=== PATIENT | female | born 1970 | race Caucasian/White ===

== ENCOUNTER 2022-12-24 20:33 | Emergency (ER) | payer OTHER, SELFPAY ==
[2022-12-24 20:56] VITALS: BP 174/109; PULSE 79; RESP 18; TEMP 36.3; O2SAT 100; BMI 33.9
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
[2022-12-24 21:42] VITALS: O2SAT 98
[2022-12-24] MEDS: MORPHINE 10 MG/ML inj IM (21:43)
[2022-12-24] MEDS: dexAMETHasone 10 MG/ML inj PO (21:43)
[2022-12-24 22:12] VITALS: BP 151/101; PULSE 72; RESP 18; O2SAT 98
== END 2022-12-24 22:15 | disposition home or self-care (01) ==
PROVIDERS: Emergency Provider Emergency Medicine Emergency Medical Services
DX: M54.12 Radiculopathy, cervical region (principal)
CPT/HCPCS: 93005; 94761; 96372; 99284; J1100; J2270

== ENCOUNTER 2024-09-07 15:15 | Emergency (ER) | payer BC, SELFPAY ==
--- OUTSIDE RECORDS SUMMARY | 2024-09-07 15:17 | XMS_ITS | Encounter Summary ---
Author Organization [place] Address [address] [place] [address]. [place] [address] Care Team Providers Care Customs Import Specialist Name Role Phone Herminio Sharma MD Primary Care Provider Sveta Morrison Primary Care Provider [phone] Tammy Freitas FLAT SURFACER JEWEL Primary Care Prov ider Gamaliel Triana MD Unavailable [phone] Priscila Aleman APRN DIESEL PILE DRIVER OPERATOR Unavailable [phone] Encounter Details Date Type Department Care Team (Late st Contact Info) Description 02/22/[address] [place] [address] Herminio Sharma [place] [address] ER (Primary Dx) Social History Tobacco Use Types Packs/Day Years Used Date Smoking Tobacco: Former Cigarettes 0.5 9 0 07/15/1986 - 07/15/1995 Smokeless Tobacco: Never Alcohol Use Standard Drinks/Week Comments No 0 (1 standard drink = 0.6 oz pur e alcohol) Comments No Sex and Gender Information Value Date Recorded Sex Assigned at Not on file 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 HISTORY OF PRESENT ILLNESS: The patient i s a 33-year-old female who says she has been ill for the last 30 hours at least with a number of symp toms, especially coughing up green-brown phlegm. Her chest has been feeling heavy, but not painful. She has had a sore throat along with aches and chills, and has been very uncomfortable. She has not felt nauseated or vomited, but her appetite is decreased. She has had normal stools. She has no ur inary symptoms. She is having her period which is due now. The last one was four weeks ago. She azar s asthma and has been using her medication more frequently. Her son is also ill with a similar probl em. She has a nebulizer at home that they both use. She doesn't smoke. There has been no trauma. M EDICATIONS: Advair and albuterol. ALLERGIES: PENICILLIN. 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 She has had three to four episodes since. When that flares up she gets pain and tingling in her left arm. FAMILY HIS TORY: As above. SOCIAL HISTORY: The patient doesn't smoke or use alcohol. She works in [employer] and has been working about 100 hours a week. REVIEW OF SYSTEMS: All other systems are negativ e. PHYSICAL EXAMINATION; Shows an alert, pleasant female. Temperature is 98.8, pulse 96 and regular , respirations 20, blood pressure 139/73, pulse ox 98% on room air. HEENT; her conjunctiva are clear . Tympanic membranes are normal. Mouth and pharynx are mildly red. There are no pustules or exudat e. Neck is supple. Lymphatics are negative. Chest shows bilateral wheezing with decreased breath so unds. Cardiovascular examination is regular S1, S2 without murmur. Peripheral pulses are intact. N o neck vein distention or edema. Her veins appear normal in her left upper extremity. The abdomen h as bowel sounds present. It is soft and nontender. No masses or guarding. Back is negative. Extre mities are normal. Skin is clear. Neurologically she is alert and oriented and within normal limits. LABORATORY: Chest x-ray shows questionable nodule in her left upper lung. There is thickening of the peribronchial tissue. Her heart size is normal. EMERGENCY DEPARTMENT COURSE: The patient was m edicated with Tylenol 975 mg by mouth and with that her body aches improved considerably. Proventil 2.5 mg, Atrovent 0.5 mg was given as nebulization. After that she had left sided wheezing. A second Proventil Atrovent neb was given and after that she was much improved, especially after a few coughs . The patient was medicated with 40 mg of prednisone by mouth. She has not been on the medication f or about a year. She currently is feeling better. The patient has an episode of bronchitis in [facility] ion to exacerbation of her asthma in the setting of a respiratory infection, which will be treated ag gressively with a number of medications as described below. She has a nebulizer at home that she can use, and she will need some time off from work. The discharge plan was reviewed with her and is as follows. DISCHARGE PLAN: The patient was prescribed a prednisone taper over eight days, Zithromax 5 00 mg now and 250 mg a day for four more days, Combivent inhaler to be used two puffs every four to s ix hours as needed for wheezing, and albuterol 2.5 mg, Atrovent 0.5 mg pre mixed nebs 60 each to be u sed one every four to six hours as needed for wheezing. She should rest, drink extra fluids, take Ty lenol for any fevers, aches or chills, and stay indoors. She has been given a work slip excusing her from her duties for two days. She is to be rechecked with a doctor in four to five days, sooner if needed. She may return to the Emergency Department as needed. DIAGNOSIS: 1) Acute bronchitis. 2) Acute asthma exacerbation. 3) Asthma. [id number] _ FRANK ZHU MD T: 02/24 11:55 MT: Document: [id number] [place], [place] Name: BRENDA MORALES EMERGENCY ROOM ENCOUNTER Page 3 of 2 LCN: HEATHER DSC: 02/22/2003 [place], [place] Name: MR#: : Admit Date: BRENDA TAO [id number] 02/22/2003 Doctor: FRANK ZHU MD EMERGENCY ROOM ENCOUNTER Page 1 of 2 Electronically file d by Andre Webster 03/01/2003 4:03 PM documented in this encounter Plan of Treatment Not on file documented as of this encounter Visit Diagnoses Diagnosis ER- Primary documented in this encounter Care Teams Customs Import Specialist Relationship Specialty Start Date End Date Herminio Sharma MD [place] [id number] PCP - General 10/19/02 02/21/12 Sveta Morrison [place] [phone] PCP - General 02/22/12 02/18/18 Tammy Freitas NP [facility] [address] [place] [address] PCP - General Nurse Practitioner - Adult Health 02/19/18 Gamaliel Triana MD [address] [facility] [address] [place], [place] [address] Assigned Surgical Provider 05/06/20 02/04/21 Priscila Aleman APRN DIESEL PILE DRIVER OPERATOR [address] [place], [place] [address] Assigned Neuroscience Provider 12/25/20 07/29/21 documented as of this encounter
--- OUTSIDE RECORDS SUMMARY | 2024-09-07 15:18 | XMS_ITS | Encounter Summary ---
Author Organization [place] Address [address] [place] [address]. [place] [address] Care Team Providers Care Director Nurses' Registry Name Role Phone Herminio Sharma MD Primary Care Provider Sveta Morrison Primary Care Provider [phone] Tammy Freitas METALLURGIST PROCESS Primary Care Prov ider Gamaliel Triana MD Unavailable [phone] Priscila Aleman APRN UNDERWRITING CLERK Unavailable [phone] Encounter Details Date Type Department Care Team (Late st Contact Info) Description 05/23/[address] [place] [address] Herminio Sharma [place] [address] ER ENCOUNTER (Primary Dx) Social History Tobacco Use Types Packs/Day Years Used Date Smoking Tobacco: Former Cigarettes 0.5 9 0 07/15/1986 - 07/15/1995 Smokeless Tobacco: Never Alcohol Use Standard Drinks/Week Comments No 0 (1 standard drink = 0.6 oz pur e alcohol) Comments No Sex and Gender Information Value Date Recorded Sex Assigned at Not on file 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 HISTORY OF THE PRESENT ILLNESS: This woman co mplains of a cough for the last nine days productive of greenish sputum. She has also had a sore thr oat over the last several days. She had a negative strep on Saturday at a [facility]. She has had no fever or chills. No nausea, no vomiting. No shortness of breath. She has had no chest pain. ALLER GIES: PENICILLIN causes hives and states her throat closes off. MEDICATIONS: None. PAST MEDICAL H ISTORY: Asthma, but does not like to use her inhalers. SOCIAL HISTORY: She is a nonsmoker. Did no t have any alcohol today. FAMILY HISTORY: Not helpful in this case. REVIEW OF SYSTEMS: In general she has not been feeling well over the last nine days with the cold symptoms and she also complains of some slight fullness in the left ear. The skin negative. Head: See history of the present illnes s. Eyes negative. Ears: See history of the present illness. Throat: See history of the present ill ness. Mouth negative. Neck negative. Cardiorespiratory: See history of the present illness. All o ther systems are negative. PHYSICAL EXAMINATION: Blood pressure 153/83. Pulse is 80. Respiratory r ate is 16. Temperature is 98.9. Pulse oximetry is 99% on room air. 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 SKIN is warm and dry. EYES: No CONJUNCTIVAL, no hemorrhage. THROAT: Mild erythema of the posterior PHARYNX with no exudate and no swelling of the TONSILS. The NECK is supple. No JUGULAR VENOUS distension and the re is no adenopathy. EARS: Both TYMPANIC MEMBRANES are normal with good light reflexes. LUNGS are cl ear to auscultation, may be a few scattered coarse rhonchi, but no rales. No wheezing. No friction rubs. HEART: Regular sinus rhythm, no murmurs. The CHEST x-ray is normal. The rapid strep is negat reena. DISCHARGE PLAN: Robitussin AC two teaspoons p.r.n. cough q. four hours. Z-elvis. Fluids. See primary medical doctor if not better in seven to ten days. DIAGNOSIS: Bronchitis. CONDITION: Stab le. [id number]_ [facility] MCDONNE[facility] MD MT: Document: [id number] 3 [place], [place] Name: BRENDA TAO EMERGENCY ROOM ENCO UNTER Page 2 of 2 LCN: ERA DSC: 05/23/2003 [place], [place] Name: MR#: : Admit Date: BRENDA TAO -66 1970 05/23/2003 Doctor: L[facility] MCDONNELL MD EMERGENCY ROOM ENCOUNTER Page 1 of 2 Electronically filed by Mandy Smith 06/07/2003 1 2:16 PM documented in this encounter Plan of Treatment Not on file documented as of this encounter Visit Diagnoses Diagnosis ER ENCOUNTER- Primary documented in this encounter Care Teams Director Nurses' Registry Relationship Specialty Start Date End Date Herminio [place] [address] PCP - General 10/19/02 02/21/12 Sveta [place] [phone] PCP - General 02/22/12 02/18/18 Tammy Freitas NP [facility] [address] [place] [place] [address] PCP - General Nurse Practitioner - Adult Health 02/19/18 Gamaliel Triana MD [address] [facility] [address] [place], [place] [address] Assigned Surgical Provider 05/06/20 02/04/21 Priscila Aleman APRN UNDERWRITING CLERK [address] [place], [place] [address] Assigned Neuroscience Provider 12/25/20 07/29/21 documented as of this encounter
--- OUTSIDE RECORDS SUMMARY | 2024-09-07 15:18 | XMS_ITS | Encounter Summary ---
Author Organization [place] Address [address] [place] [address] Care Team Providers Care Webfocus Developer Name Role Phone Tammy Freitas MECHANIC/WELDER Primary Care Prov ider Encounter Details Date Type Department Care Team (Late st Contact Info) Description 07/24/2024 10:15 AM RADIO COMMUNICATION COORDINATOR Lab [facility] [address] [place] [phone] Memory loss (Primary Dx) Social History Tobacco Use Types Packs/Day Years Used Date Smoking Tobacco: Former Cigarettes 0.5 9 0 07/15/1986 - 07/15/1995 Smokeless Tobacco: Never Alcohol Use Standard Drinks/Week Comments No 0 (1 standard drink = 0.6 oz pur e alcohol) PHQ-2 Answer Date Recorded PHQ-2 Score 0 01/23/2019 Adolescent Education Answer Date Record ed Getting School Help Needed Not on file 04/21 Comments No Sex and Gender Information Value Date Recorded Sex Assigned at Not on file Legal Sex Female 3:45 AM RADIO COMMUNICATION COORDINATOR Gender Identity Not on file Sexual Orientation Not on file documented as of this encounter Plan of Treatment Not on file documented as of this encounter Procedures Procedure Name Priority Date/Time Associated Diagnosis Comments TSH WITH FREE T4 REFLEX Routine 07/24/2024 10:26 AM RADIO COMMUNICATION COORDINATOR Memory loss FOLATE Routine 07/24/2024 10:26 AM RADIO COMMUNICATION COORDINATOR Memory loss VITAMIN B12 Routine 07/24/2024 10:26 AM RADIO COMMUNICATION COORDINATOR Memory loss documented in this encounter Results * Vitamin B12 (07/24/2024 10:26 AM RADIO COMMUNICATION COORDINATOR) Vitamin B12 640 232 - 1,245 pg/mL 07/24/2024 5:28 PM RADIO COMMUNICATION COORDINATOR [facility] Blood STRUCTURE OF RIGHT UPPER LIMB / Unknown Venipuncture / Unknown 07/24/2024 10:26 AM RADIO COMMUNICATION COORDINATOR 07/24/2024 10:27 AM RADIO COMMUNICATION COORDINATOR [facility] PA-C LAB - BLOOD ORDERAB LES Final Result LABORATORY [facility] [address] [facility], [address] * Folate (07/24/2024 10:26 AM RADIO COMMUNICATION COORDINATOR) Folic Acid 9.4 4.6 - 34.8 ng/mL 07/24/2024 5:05 PM RADIO COMMUNICATION COORDINATOR LABORATORY Blood STRUCTURE OF RIGHT UPPER LIMB / Unknown Venipuncture / Unknown 07/24/2024 10:26 AM RADIO COMMUNICATION COORDINATOR 07/24/2024 10:27 AM RADIO COMMUNICATION COORDINATOR Anuel Edge León CA-C LAB - BLOOD ORDERAB LES Final Result Performing Organization Address City/[facility]/ZIP Co de Phone Number LABORATORY [facility] Lab [address] [facility], [address] * TSH with free T4 reflex (07/24/2024 10:26 AM RADIO COMMUNICATION COORDINATOR) TSH 3.35 0.30 - 4.20 uIU/mL 07/24/2024 11:14 AM RADIO COMMUNICATION COORDINATOR LABORATORY Blood STRUCTURE OF RIGHT UPPER LIMB / Unknown Venipuncture / Unknown 07/24/2024 10:26 AM RADIO COMMUNICATION COORDINATOR 07/24/2024 10:27 AM RADIO COMMUNICATION COORDINATOR [facility]-C LAB - BLOOD ORDERAB LES Final Result [facility] LABORATORY [facility] [address] Lab (1st floor, no room number) [place] [phone], [facility] documented in this encounter Visit Diagnoses Diagnosis Memory loss- Primary documented in this encounter Care Teams Webfocus Developer Relationship Specialty Start Date End Date Tammy Freitas NP [facility] [address] [address] PCP - General Nurse Practitioner - Adult Health 02/19/18 documented as of this encounter
--- OUTSIDE RECORDS SUMMARY | 2024-09-07 15:18 | XMS_ITS | Clinical Summary ---
Author Organization [facility] Address [address] [place] [address] Care Team Providers Care Platen Press Operator Name Role Phone Tammy Freitas CYBER SYSTEMS ENGINEER Primary Care Prov ider Allergies Active Allergy Reactions Criticality Noted Date Comments Latex Hives High 03/11/2012 Penicillins Hives High 06/30/2002 Throat swells Prunus Persica Rash Medium 06/24/2011 Rash over entire body Rash over entire body Medications omeprazole (PRILOSEC) 20 MG CR capsuleIndicati ons:Gastroesoph ageal Reflux Disease Take 20 mg by mouth daily Active carBAMazepine (TEGRETOL) 200 MG tabletIndicatio ns:Trigeminal neuralgia Take 1 tablet (200 mg) by mouth 3 times daily 90 tablet 2 01/30/2019 Active gabapentin (NEURONTIN) 100 MG capsule Take 100 mg by mouth 4 times daily Active traZODone (DESYREL) 50 MG tablet Take 50-100 mg by mouth nightly as needed for sleep Active oxyCODONE 5 MG PO tabletIndicatio ns:Mass on back Take 1-2 tablets (5-10 mg) by mouth every 4 hours as needed for moderate to severe pain 10 tablet 09/03/2019 Active Active Problems Problem Noted Date Diagnosed Date Mass on back 08/13/2019 Overview (08/13/2019): Added automatically from request for surgery [id number] Bariatric surgery status 04/02/2013 Anemia 06/24/2011 Diabetes mellitus, type II 06/24/2011 Overview (07/05/2017): Overview: a system change updated this record. This will not affect patient care or billing. This comment can be deleted. SVT (supraventricular tachycardia) 06/24/2011 Obesity 10/19/2002 Overview (07/05/2017): Problem list name updated by automated process. Provider to review Resolved Problems Problem Noted Date Diagnosed Date Resolved Date Obesity, morbid (more than 1 00 lbs over ideal weight or BMI > 40) 03/12/2012 04/02/2013 CARDIOVASCULAR SCREENING; LD L GOAL LESS THAN 160 05/14/2010 04/02/2013 Phlebitis and thrombophlebit is of deep veins of upper extremities 05/04/2005 04/02/2013 Anxiety state 05/04/2005 04/02/2013 Overview (04/14/2015): Problem list name updated by automated process. Provider to review Depressive disorder, not elsewhere classified 02/07/20 05 04/02/2013 Dyspnea and respiratory abnormality 10/19/2002 01/21/2005 Overview (04/14/2015): Problem list name updated by automated process. Provider to review Epistaxis 10/19/2002 01/21/2005 Diarrhea 06/30/2002 01/21/2005 UTI (urinary tract infection) 06/30/2002 01/21/2005 Overview (04/14/2015): Problem list name updated by automated process. Provider to review Encounters Date Type Department Care Team Description 07/26/2024 MyC Medical Advice Initial Department [facility] 07/26/2024 MyC Medical Advice Initial Department My[facility], [facility] 07/26/2024 MyC Medical Advice Initial Department Mychart, [facility] 07/24/2024 10:15 AM [facility] Lab [facility] [address] [place] [address] Memory loss (Primary Dx) 07/24/2024 Travel from Last 3 Months Family History Medical History Relation Comments Cancer Father Skin Ca Circulatory Father Heart Disease Father Hypertension Father Hypertension Mother Migraines Mother Diabetes Paternal Grandmother Relation Status Comments Father Alive Mother Alive Paternal Grandmother Social History Tobacco Use Types Packs/Day Years Used Date Smoking Tobacco: Former Cigarettes 0.5 9 0 07/15/1986 - 07/15/1995 Smokeless Tobacco: Never Tobacco Cessation:Counseling Given: Yes Alcohol Use Standard Drinks/Week Comments No 0 (1 standard drink = 0.6 oz pur e alcohol) PHQ-2 Answer Date Recorded PHQ-2 Score 0 01/23/2019 Adolescent Education Answer Date Record ed Getting School Help Needed Not on file 04/21 Comments No Sex and Gender Information Value Date Recorded Sex Assigned at Not on file Legal Sex Female 3:45 AM STOCKROOM ASSOCIATE Gender Identity Not on file Sexual Orientation Not on file Last Filed Vital Signs Vital Sign Reading Time Taken Comments Blood Pressure 137/81 09/03/2019 9:38 AM STOCKROOM ASSOCIATE Pulse 65 09/03/2019 6:32 AM STOCKROOM ASSOCIATE Temperature 36.3 C (97.4 F) 09/03/2019 9:35 AM STOCKROOM ASSOCIATE Respiratory Rate 16 09/03/2019 9:35 AM STOCKROOM ASSOCIATE Oxygen Saturation 98% 09/03/2019 9:35 AM STOCKROOM ASSOCIATE Inhaled Oxygen Concentration - - Weight 88 kg (194 lb) 09/03/2019 6:32 AM STOCKROOM ASSOCIATE Height 170.2 cm (5' 7) 09/03/2019 6:32 AM STOCKROOM ASSOCIATE p er pt Body Mass Index 30.38 09/03/2019 6:32 AM STOCKROOM ASSOCIATE Plan of Treatment Not on file Procedures Procedure Name Priority Date/Time Associated Diagnosis Comments VITAMIN B12 Routine 07/24/2024 10:26 AM STOCKROOM ASSOCIATE Memory loss FOLATE Routine 07/24/2024 10:26 AM STOCKROOM ASSOCIATE Memory loss TSH WITH FREE T4 REFLEX Routine 07/24/2024 10:26 AM STOCKROOM ASSOCIATE Memory loss from Last 3 Months Results * TSH with free T4 reflex (07/24/2024 10:26 AM STOCKROOM ASSOCIATE) TSH 3.35 0.30 - 4.20 uIU/mL 07/24/2024 11:14 AM STOCKROOM ASSOCIATE [facility] Blood STRUCTURE OF RIGHT UPPER LIMB / Unknown Venipuncture / Unknown 07/24/2024 10:26 AM STOCKROOM ASSOCIATE 07/24/2024 10:27 AM STOCKROOM ASSOCIATE Anuel Traore PA-C LAB - BLOOD ORDERAB LES Final Result [facility] [address] Lab (1st floor, no room number) [place] [address], [facility] * Folate (07/24/2024 10:26 AM STOCKROOM ASSOCIATE) Folic Acid 9.4 4.6 - 34.8 ng/mL 07/24/2024 5:05 PM STOCKROOM ASSOCIATE [facility] Blood STRUCTURE OF RIGHT UPPER LIMB / Unknown Venipuncture / Unknown 07/24/2024 10:26 AM STOCKROOM ASSOCIATE 07/24/2024 10:27 AM STOCKROOM ASSOCIATE Anuel Traore PA-C LAB - BLOOD ORDERAB LES Final Result [facility] Lab [address] [facility], [address] [address], [facility] * Vitamin B12 (07/24/2024 10:26 AM STOCKROOM ASSOCIATE) Vitamin B12 640 232 - 1,245 pg/mL 07/24/2024 5:28 PM STOCKROOM ASSOCIATE [facility] Blood STRUCTURE OF RIGHT UPPER LIMB / Unknown Venipuncture / Unknown 07/24/2024 10:26 AM STOCKROOM ASSOCIATE 07/24/2024 10:27 AM STOCKROOM ASSOCIATE Anuel Traore PA-C LAB - BLOOD ORDERAB LES Final Result [facility] [address] [facility], [address] [address], [facility] from Last 3 Months Insurance [facility] Advance Directives For more information, please contact: [phone] * Full Code (Latest Code Status on File) Date Activated Date Inactivated Comments 03/12/2012 12:17 PM 03/14/2012 2:23 PM Care Teams Platen Press Operator Relationship Specialty Start Date End Date Tammy Freitas NP [facility] [address] [facility] [place] [place] [address] PCP - General Nurse Practitioner - Adult Health 02/19/18
--- OUTSIDE RECORDS SUMMARY | 2024-09-07 15:18 | XMS_ITS | Encounter Summary ---
Author Organization [facility] Address [address] [place] [address] Care Team Providers Care Lead Cytogenetic Technologist Name Role Phone Sveta Morrison Primary Care Provider [phone] Tammy Freitas RN LIAISON Primary Care Prov ider Gamaliel Triana MD Unavailable [phone] Priscila Aleman APRN DISTANCE LEARNING ADMINISTRATOR Unavailable [phone] Reason for Visit * Reason Onset Date Comments Appointment 01/02/2018 schedule Encounter Details Date Type Department Care Team (Late st Contact Info) Description 01/02/2018 [place] [id number] [address] Unknown Appointment (schedule) Social History Tobacco Use Types Packs/Day Years Used Date Smoking Tobacco: Former Cigarettes 0.5 11 0 07/15/1986 - 07/15/1997 Smokeless Tobacco: Never Alcohol Use Standard Drinks/Week Comments No 0 (1 standard drink = 0.6 oz pur e alcohol) Comments No Sex and Gender Information Value Date Recorded Sex Assigned at Not on file Legal Sex Female 3:45 AM JEWEL HOLE FINISH OPENER Gender Identity Not on file Sexual Orientation Not on file documented as of this encounter Miscellaneous Notes * Telephone Encounter - Veda Patinoe - 01/02/2018 11:08 AM CDT [facility] Phone Message May a detailed message be left on voicemail: yes Reason for Call: Other: Pts information was left with AAKASH at [phone] (customer service receptionist transferredto Aakash). Pt would like to reschedule with Neurosurgery. Action Taken: Message routed to: [facility] ([facility]): Neuro documented in this encounter Plan of Treatment Not on file documented as of this encounter Visit Diagnoses Not on filedocumented in this encounter Care Teams Lead Cytogenetic Technologist Relationship Specialty Start Date End Date Sveta Morrison PCP - General 02/22/12 02/18/18 Tammy Freitas NP [facility] [address] [place], [place] [address] PCP - General Nurse Practitioner - Adult Health 02/19/18 Gamaliel Triana MD [address] [facility] [address] [place], [place] [address] Assigned Surgical Provider 05/06/20 02/04/21 Priscila Aleman APRN DISTANCE LEARNING ADMINISTRATOR [address] [place], [place] [address] Assigned Neuroscience Provider 12/25/20 07/29/21 documented as of this encounter
--- OUTSIDE RECORDS SUMMARY | 2024-09-07 15:18 | XMS_ITS | Encounter Summary ---
Author Organization [facility] Address [address] [place] [address]. [place] [address] Care Team Providers Care Letter Of Credit Document Examiner Name Role Phone Herminio Sharma MD Primary Care Provider DoctorSundar MD Primary Care Provider UnavailSveta Matos Primary Care Provider [phone] Tammy Freitas CHANNEL REBUILDER Primary Care Prov ider Gamaliel Triana MD Unavailable [phone] Priscila Aleman APRN SUSTAINABILITY EXECUTIVE DIRECTOR Unavailable [phone] Encounter Details Date Type Department Care Team (Late st Contact Info) Description 10/13/[address] [place] [address] Herminio Sharma [place] [address] ER (Primary Dx) Social History Tobacco Use Types Packs/Day Years Used Date Smoking Tobacco: Former Cigarettes 0.5 9 0 07/15/1986 - 07/15/1995 Smokeless Tobacco: Never Alcohol Use Standard Drinks/Week Comments No 0 (1 standard drink = 0.6 oz pur e alcohol) Comments No Sex and Gender Information Value Date Recorded Sex Assigned at Not on file Legal Sex Female 3:45 AM DRAUGHTSMAN Gender Identity Not on file Sexual Orientation Not on file documented as of this encounter Progress Notes * 10/13/2002 11:59 PM CSTAddended by: ANDRE WEBSTER on: 10/21/2002,11:49 AM Modules accepted: Progress Notes 0 0:00 Emergency Department Encounter-[facility] MCDONNELL) [Entered: 00:00 Transcri ption ([facility])] : 1970 CHIEF COMPLAINT: Chest pain. HISTORY OF PRESENT ILLNESS: This is a 32-year-old female who comes in with a sore throat, coughing productive of yellow sputum, that start ed yesterday. This was followed by 6/10 respiratory phasic chest pain that started at 9:00 p.m. last night. It started to the mid-chest and seemed to radiate to her back with coughing, with moderate s hortness of breath. The pain to her chest was 10/10 at 11:00 p.m. last night, but since she has been here the pain is only there when she takes a deep breath. She has a history for blood clots to her left clavicle region, that she had it back in June, a couple of months ago, where she was placed on Coumadin but they ended up stopping it because she ended up having some nosebleeds that brought he r into the hospital here, so they stopped the Coumadin all together. She has had a history for blood clots to her left clavicle on two occasions, once in June of 2002 and then also in August. She has had a history of deep vein thrombosis to the left leg, back in December of 1998. She denie s any leg cramps or pain. She has no leg pain today. No swelling. No trauma to the lower extremitie s. No other symptoms. REVIEW OF SYSTEMS: She denies any history for PE. She denies any dyspnea on exertion. No back pain. No nausea, vomiting, or other symptoms. She did have some wheezing. PAST MEDICAL HISTORY: Surgeries: Cholecystectomy and tubal ligation. Illnesses: See history of presen t illness above. ALLERGIES: PENICILLIN. MEDICATIONS: None. SOCIAL HISTORY: No smoking or tobacc o. Last menstrual period was September 12, 2002. PHYSICAL EXAM: Temperature 99.4, blood pressure 132/81 , pulse 99, respirations 18, pulse oximetry 96% on room air. HEENT: HEAD is atraumatic and normocep halic. NECK is supple with a midline trachea. LUNGS: Normal breath sounds without rales, rhonchi, o r wheezes. She had some expiratory wheezing along with cough. CARDIOVASCULAR: Regular rate and rhyt hm without gallops or murmurs. ABDOMEN: Bowel sounds are positive. No tenderness, rebound, or guar ding. EXTREMITIES: +2/4 pedal pulses. No edema. BACK: No CVA tenderness to percussion. MUSCULOSK ELETAL: +5/5 strength in UPPER and LOWER EXTREMITIES bilaterally. GENERAL: The patient is in mild di stress. There is mild tachypnea which stops with oxygen. The patient seems to be a little bit mildl y tachypneic but stops with the oxygen. The patient says she only has pain with breathing. PSYCHIAT BENITA: The patient is alert and oriented times 3. Speech is congruent to affect. DIAGNOSTIC DATA: T he patient had a CT of the chest with I.V. contrast, which was negative. It showed some emphysematou s changes but no clots, no signs for PE, no signs for pneumonia. Just some slight emphysematous levine ges. This was read by Dr. Radha Lopez. I also had him look over the ultrasound that she had of the left lower extremity into the clavicle, the left subclavian. He said that it read as stenosis, and t hat there was no clear cut blood clot on the ultrasound. The patient's laboratories were as follows: Sodium 143, potassium 3.9, chloride 106, bicarb 26, BUN 16, creatinine 0.8, glucose 95. CBC showed a white count of 10.2, hemoglobin 12.3, hematocrit 35.6, platelets 267. D-dimer was negative. ASSE SSMENT: 1) Reactive airway disease and bronchitis. 2) Probable pleurisy. 3) Chest pain secondary to pleurisy. CLINICAL DECISION MAKING: I thought initially that we were going down the right road of possible PE, so the patient had a CT of the chest to rule out PE. And, so the patient had the CT that was done and it was negative. But, the thing is that when we treated the patient with albuterol /Atrovent nebs, as she was actually a little short of breath initially, but then we gave her a neb be cause of the wheezing and the wheezing actually stopped. So after the neb her breathing improved sig nificantly and the wheezing had disappeared, and her pulse oximetry stayed to 99% to 100%, actually 1 00% on room air, even after the oxygen was taken off her nose. I had them take the oxygen off js ritter we were trying an ABG, which they were unsuccessful, as far as getting one, so that was abandoned. Actually after 40 minutes to an hour she was less tachypneic, respirations (I counted) at 17, and sh riya was able to talk in full sentences, which she had a little trouble doing before, and even without t he oxygen she was feeling much better with the neb, so that is more consistent with more of bronchosp asms, and so I think my probability of PE is very low. I did talk to Dr. Lopez as far as the ultras ound having a clot, and he said it really did not show anything clear cut, it just showed some stenos is and possible blood clot, and so I do not think we need to do any further investigation. I did barrett ck her lower extremities for tenderness. She had no pain to her lower extremities. She had a negativ e Homans sign. Flexion of the ankle was negative for pain. No swelling or pitting edema to her lowe r extremities that I was able to notice, and so I think this is more consistent with reactive airway disease, no need to do any further investigations beyond the CT at this time. I just will mention th at I told her that if she starts having more worsening symptoms as far as pain and swelling to her le gs that she needs to get worked up for DVT, but at this point it does not seem that this is necessary at the present time. PLAN: So, the patient will be discharged. She is to follow up with Dr. Aurelio martinez in 24 to 72 hours. Robitussin-AC, 1 to 2 teaspoons every 4 to 6 hours. Vicodin, 1 to 2 tablets every 4 to 6 hours for pleurisy. Albuterol inhaler, 1 to 2 puffs every 4 to 6 hours. Z-pack, take a s prescribed. Return with shortness of breath, severe pain, or worsening symptoms. [id number] _ MARVEL SORIANO MD MT: Document: [id number] [facility] [place] Name: CHULA TAO EMERGENCY ROOM ENCOUNTER Page 3 of 3 LC N: ERA DSC: 10/13/2002 [place], [place] Name: MR#: : Admit Date: CHULA TAO [id number] 1970 10/13/2002 Doctor: MARVEL SORIANO MD EMERGENCY ROOM EN COUNTER Page 1 of 3 Electronically filed by Andre Webster 10/21/2002 11:49 AM documented in this encounter Plan of Treatment Not on file documented as of this encounter Visit Diagnoses Diagnosis ER- Primary documented in this encounter Care Teams Letter Of Credit Document Examiner Relationship Specialty Start Date End Date Herminio [place] [address] PCP - General 10/19/02 02/21/12 Sundar Villeda MD PCP - General 08/30/01 10/18/02 Sveta Morrison PCP - General 02/22/12 02/18/18 Tammy Freitas NP [facility] [address] [facility] [place] [facility] [place] [address] PCP - General Nurse Practitioner - Adult Health 02/19/18 Gamaliel Triana MD [address] [place] [address] Assigned Surgical Provider 05/06/20 02/04/21 Priscila Aleman APRN SUSTAINABILITY EXECUTIVE DIRECTOR [address] [place], [place] [address] Assigned Neuroscience Provider 12/25/20 07/29/21 documented as of this encounter
--- OUTSIDE RECORDS SUMMARY | 2024-09-07 15:18 | XMS_ITS | Encounter Summary ---
Author Organization [facility] Address [facility] [place] [address] Care Team Providers Care Tafe Lecturer Name Role Phone Sveta Morrison Primary Care Provider Tammy Freitas OYSTER TONGER Primary Care Prov ider Gamaliel Triana MD Unavailable [phone] Priscila Aleman APRN FLOAT NURSE Unavailable [phone] Encounter Details Date Type Department Care Team (Late st Contact Info) Description 09/12/2012 Abstract [facility] [place] [address] [place] [address] Amalia Kaminski PA-C [address] [place] [address] Social History Tobacco Use Types Packs/Day Years Used Date Smoking Tobacco: Never Alcohol Use Standard Drinks/Week Comments No 0 (1 standard drink = 0.6 oz pur e alcohol) Comments No Sex and Gender Information Value Date Recorded Sex Assigned at Not on file Legal Sex Female 3:45 AM 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 MACHINE 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 Gender Identity Not on file Sexual Orientation Not on file documented as of this encounter Plan of Treatment Not on file documented as of this encounter Visit Diagnoses Not on filedocumented in this encounter Care Teams Tafe Lecturer Relationship Specialty Start Date End Date Sveta Morrison PCP - General 02/22/12 02/18/18 Tammy Freitas NP [facility] [address] [place] [address] PCP - General Nurse Practitioner - Adult Health 02/19/18 Gamaliel Triana MD [address] [facility] [address] [place] [address] Assigned Surgical Provider 05/06/20 02/04/21 Priscila Aleman APRN FLOAT NURSE [address] [place] [address] Assigned Neuroscience Provider 12/25/20 07/29/21 documented as of this encounter
--- OUTSIDE RECORDS SUMMARY | 2024-09-07 15:18 | XMS_ITS | Encounter Summary ---
Author Organization [facility] Address [address] [place] [id number] Care Team Providers Care Insemination Worker Name Role Phone Eliot Thornton MD Primary Care Provider DoctorSundar MD Primary Care Provider UnavailSveta Matos Primary Care Provider [phone] Tammy Freitas FOUNTAIN ATTENDANT Primary Care Prov ider Gamaliel Triana MD Unavailable [phone] Priscila Aleman APRN RELATIONSHIP SPECIALIST Unavailable [phone] Encounter Details Date Type Department Care Team (Late st Contact Info) Description 06/23/[address] [place] [address] Eliot [place] [address] ER ENCOUNTER,H&P,DISCHARGE SUMMARY (Primary Dx) Social History Tobacco Use Types Packs/Day Years Used Date Smoking Tobacco: Former Cigarettes 0.5 9 0 07/15/1986 - 07/15/1995 Smokeless Tobacco: Never Alcohol Use Standard Drinks/Week Comments No 0 (1 standard drink = 0.6 oz pur e alcohol) Comments No Sex and Gender Information Value Date Recorded Sex Assigned at Not on file 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 HISTORY OF PRESENT ILLNESS: T his 32-year-old female states that she noted the onset of left abdominal flank pain with the pain ini tially subcostal and radiating to the left flank at approximately 1 p.m. earlier today. She describe s pain that is pressure and sometimes knife-like intermittent in nature and episodes relatively short -lived. There was no radiation to the inguinal crease or femoral canal. She has had chilling withou t fever. She describes a feeling of heaviness and dysesthesias in the left upper extremity and is co ncerned about that as well. She has a prior history of left axillary or subclavian venous thrombosis in 1998 that was treated with Lovenox and Coumadin. She has been off Warfarin derivatives for almos t two years. Finally she describes both lower extremities as feeling quite heavy and used the expres kirsten they feel like elephant legs might feel. She denies other constitutional complaints. She has had no urinary voiding symptoms, nausea, vomiting or stool pattern change. PAST MEDICAL HISTORY: Her past medical history is remarkable for migraine, cholecystectomy in 1995 and the episode of unconfir med left upper extremity venous thrombosis of the subclavian or axillary vein in 1998 with the only r isk factor being that she was four month . She states that she had a recurrence of this epi sode one year later. She states she has been off Coumadin for approximately two years. Her present medications are none. 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 FAMILY HIST ORY: Equivocal regarding a clotting disorder with my history suggestion that a grandparent had a rup tured cerebral aneurysm as a reason for intracranial bleed as opposed to an inheritable coagulopathy. REVIEW OF SYSTEMS: Please see history of present illness. Completed systems review is negative. P HYSICAL EXAMINATION: Temperature is 99. Pulse 99. Respirations 20. Blood pressure 142/79. O2 satu ration is 99 percent on room air. General appearance is that of a moderately overweight, but pleasan t and cooperative woman who is anxious about her multiple complaints. HEAD, EYES, EARS, NOSE AND TH ROAT - there is no sclera icterus or conjunctival pallor. EARS, NOSE AND THROAT exam were unremarkab le. NECK - trachea is midline. Respiratory - LUNGS are clear. CARDIOVASCULAR - HEART - without mur mur, rub or extra sounds. ABDOMEN - nondistended. Bowel sounds are active. There is no guarding or rebound tenderness present. There is a suggestion of left flank percussion tenderness, however. PE LVIC examination was not undertaken by this examiner. SKIN - reveals no exanthem and/or icteric levine ge. There were no petechia and/or purpura observed either. NEUROLOGIC identified no focal or idealiz ed findings. MUSCULOSKELETAL - there is no evidence for asymmetric limb girth either of the upper or lower extremities with neurocirculatory examination revealing no abnormal findings either. Neurolog ic exam demonstrated symmetric cranial nerve, motor sensory and cerebellar findings. LABORATORY AND DIAGNOSTIC IMAGING: White blood count is 9,100 with normal differential. Hemoglobin 12.3 grams perc ent. Serum electrolytes glucose, BUN and creatinine are normal. INR .96 and PTT 28. Sed rate is 29 mm/hr. Urinalysis revealed 2 to 5 white cells and 2 red cells per high powered field with bacteria p resent. Qualitative urine HCG is negative. Ultrasound imaging of the lower extremities revealed no evidence for deep venous thrombosis in either the right or left leg with imaging of the common femora l, superficial femoral and popliteal and visualized portions of the posterior tibial vein appearing n ormal. Imaging of the left upper extremity and confluence of the venous trunk and superior mediastin um demonstrated nonocclusive narrowing of the subclavian vein with normal axillary and distal venous structures. EMERGENCY DEPARTMENT TREATMENT AND DECISION MAKING: A saline lock was placed and the pa tient was given Fentanyl 75 mcg intravenously that did result in attenuation of her pain. I reviewed with her findings of her ultrasound imaging with the inability to differentiate between post phlebit ic scarring stricture and stenosis of the left subclavian vein versus an active thrombus propagation that is nonocclusive. The clinical findings were reviewed with Dr. Kenney with the patient to be admi tted to the hospital and started empirically on antibiotics and probably subcutaneous Heparin or Love nox. DIAGNOSTIC IMPRESSION: 1) Probable urinary tract infection with history of an ectopic kidney with subclinical pyelonephritis working diagnosis. 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 3) She has a history of status post cholecystectomy. 4) Migraine. 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 In [facility] Emergency Room it was found by investigation that the patient had pyuria. Also, she complained of a second illness of constant left arm and shoulder pain, swelling and tingling. She had a past medi allen history that was significant. She had a history of a clot in the left subclavian vein system. She has been off of Coumadin now for two years. In the ER an ultrasound done showed non-oc clusive narrowing of the subclavian vein at that site. FAMILY HISTORY/SOCIAL HISTORY: She is marrie d. 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 Her paternal grandmother from a clotting disorder. REVIEW OF SYSTE MS: CARDIOVASCULAR: Negative for hypertension. RESPIRATORY: Negative for smoking. EYE: No histo ry of glaucoma. ENT: No history of polyps. ORTHOPEDIC: No history of fracture. GI: No history o f GERD. HEMATOLOGIC: Positive for clots. NEUROLOGIC: Positive for migraines. Questionable history of TIA. ALLERGIES: No history of asthma. IMMUNOLOGY: No history of immunologic diseases. PSYCHIA TRIC: No history of depression. ENDOCRINE: No history of thyroid problems. She is a non-alcohol u ser, no tobacco. MEDICATIONS: She uses Maxalt for headaches. Other than that she is on no chronic meds. PHYSICAL EXAM: Pleasant white female in no acute distress. Temp 99, blood pressure 142/79, O2 sats 99% on room air. HEENT: Unremarkable. NECK supple. CHEST clear. Cardiac rhythm sinus. Her l eft upper extremity appeared to be somewhat edematous. Her abdomen was soft with no rebound, guardin g, no tenderness. and RECTAL are not done. EXTREMITIES: She had no obvious deformity. Hemogram showed a hemoglobin of 12.3, hematocrit 35.8, white count 9.7. Her differential was normal. Sodium 143, potassium 4.1, glucose 94, creatinine 0.7, bicarb 25, chloride 107, BUN 17, calcium 9.2, INR .9 6, PTT 28. Urinalysis is heavy with leukocyte esterase, moderate bacteria. EKG done showed normal s inus rhythm. The ultrasound results are dictated as above. HCG for urine was negative. IM PRESSION AND PLAN: 1. Left arm swelling and tingling. The Emergency Room doctor, Dr. Larson discuss ed the ultrasound with the radiologist front desk associate who said that the ultrasound was nondiagnostic, that s he had some non-occlusive narrowing of her left subclavian which could be recurrent clot and/or stric ture. Recommended intervention of radiology consult. This will be requested. Will start the patien t empirically on Heparin. 2. Pyelonephritis. Will treat her with IV Tequin. [id number] REMI KENNEY MD MT: Document: [id number] [place], [place] Name: CHULA TAO HISTORY AND PHYSCIAL Page 2 of 2 LCN: MS3 DSC : [place], [place] Name: MR#: : Admit Date: CHULA TAO 004 [id number] 1970 06/23/2002 Doctor: REMI KENNEY MD HISTORY AND PHYSICAL Page 1 of 2 16:00 Discharge Summary-[facility] ELIOT THORNTON () [Entered: 00:00 Transcripti on ([facility])] : 70 Chula Tao is a 32-year-old female who was admitted through the emergency room with several day history of subcostal pelvic pressure discomfort, associated inter mittent chills and fever, and malaise. Patient also had some leg heaviness bilaterally associated. I n the ER, she was found to have pyuria and borderline high white count. She also complained of some constant left arm and shoulder aching and some swelling and tingling of the arm. Patient, at the paula e of admission, had prior history of a subclavian vein thrombosis several years earlier which was spo ntaneous. The patient had been treated with Coumadin for a period of time subsequently but had been off Coumadin for two years. In the emergency room an ultrasound was done of the left subclavian vein which showed nonocclusive narrowing. There was a question of whether or not there was a thrombus pr esent. The patient, at the time of admission, had a temp. of 99, blood pressure 142/79, O2 saturation 99% on room air. ABDOMEN - soft without rebound. The hemoglobin was 12.3, white count 9700, differ ential normal, and chemistries were normal. The EKG was normal. Urine test was negative. The patient was admitted with probable pyelonephritis, placed on I.V. Cipro 400 mg b.i.d., and also heparinized for possible recurrent thrombosis of the left subclavian vein. She subsequently had bila teral lower extremity venous Dopplers which were negative. On questioning the patient the next day, the patient related significant heaviness in her chest with shortness of breath that had been sudden in onset just prior to admission and at this point, a spiral CT was ordered just to rule out a pulmon delbert embolism. Fortunately, this returned as negative for PE or other abnormality. The patient, in [facility], developed a migraine headache and took several doses of Maxalt 10 mg with slow improveme nt. Patient had improvement in her left arm swelling and the onset of right arm aching and perhaps s welling one to two days into the hospitalization. No evidence of venous distention was noted. The d iscomfort has now all resolved. Urine culture has returned showing greater than 100,000 colonies of mixed fabienne, might be a contaminant. Patient is feeling much better than she has for the last several months she relates. We have no evidence of new clotting elsewhere and, therefore, we are stopping h er Heparin, convert her to one aspirin daily, and will send her home on Cipro 500 mg b.i.d. for a wee k for probable resolving urinary tract infection with follow up in my office next week and a note for missing work. IMPRESSION AT TIME OF DISCHARGE: 1. Probable acute pyelonephritis. 2. Consider se kartik viral syndrome with migratory myalgias and extremity discomfort. 3. History of left subclavian vein thrombosis, possible coagulopathy. 4. Migraine headaches. [id number] ELIOT THORNTON MD MT: Document: [id number] [place], [place] Name: CHULA TAO Please refer to the Nursing Discharge Information Sheet f or more detailed information regarding diet, physical actvity limitations, medications and other pert inent instructions given to this patient upon discharge. DISCHARGE SUMMARY Page 2 of 2 LCN: MS3 D SC: 06/26/2002 [place], [place] Name: MR#: : Admit Date: Discharge Date: CHULA TAO -66 1970 06/23/2002 06/26/2002 Doctor: ELIOT THORNTON MD Please refer to the Nursing Discharge Information Sheet for more detailed information regarding di et, physical activity limitations, medications and other pertinent instructions given to this patient upon discharge. DISCHARGE SUMMARY Page 1 of 2 documented in this encounter Plan of Treatment Not on file documented as of this encounter Visit Diagnoses Diagnosis ER ENCOUNTER,H&P,DISCHARGE SUMMARY- Primary documented in this encounter Care Teams Insemination Worker Relationship Specialty Start Date End Date Eliot [place] [address] PCP - General 10/19/02 02/21/12 Sundar Villeda MD PCP - General 08/30/01 10/18/02 Sveta Morrison PCP - General 02/22/12 02/18/18 Tammy Freitas NP [facility] [address] [address] PCP - General Nurse Practitioner - Adult Health 02/19/18 Gamaliel Triana MD [address] [facility] [address] [place] [address] Assigned Surgical Provider 05/06/20 02/04/21 Priscila Aleman APRN RELATIONSHIP SPECIALIST [address] [place] [address] Assigned Neuroscience Provider 12/25/20 07/29/21 documented as of this encounter
--- OUTSIDE RECORDS SUMMARY | 2024-09-07 15:18 | XMS_ITS | Encounter Summary ---
Author Organization [facility] Address [address] [place] [address]. 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
--- OUTSIDE RECORDS SUMMARY | 2024-09-07 15:18 | XMS_ITS | Clinical Summary ---
Author Organization [facility] Address [address] [place] [address] Care Team Providers Care Coin Rolling Machine Operator Name Role Phone Pcp, No Primary Care Provider Unavailabl e Allergies Active Allergy Reactions Criticality Noted Date Comments Latex Hives,Other - Describe In Comment Field High 06/24/2011 Pt is still able to eat bananas., Comment: Hives, Comment: Hives Wise (Prunus Persica) Rash Medium 06/24/2011 Rash over entire body Rash over entire body Rash over entire body Penicillins Hives,Angioedema,Oth er - Describe In Comment Field High 06/30/2002 Throat swells Comment: Hives Angioedema, Comment: Hives Angioedema Medications albuterol HFA (PRO-AIR; VENTOLIN; PROVENTIL) 90 mcg/actuation inhalerIndications :Bronchitis Inhale 1-2 Puffs by mouth every 4 hours if needed for Shortness Of Breath. 1 Each 10/10/19 24 Active cyclobenzaprine (FLEXERIL) 10 mg tabletIndications: Back spasm Take 1 Tablet (10 mg) by mouth three times daily. 180 Tablet 10/10/19 24 Active EPINEPHrine (EPIPEN) 0.3 mg/0.3 mL auto-injectorIndic ations:Anaphylaxis due to antibacterial agent Inject 0.3 mg (1 Pen) intramuscular each time if needed for Allergic Reaction. 2 Each 3 10/10/19 24 Active nitroglycerin (NITROSTAT) 0.4 mg sublingual tabletIndications: Chest pain in adult Place 1 Tablet (0.4 mg) under the tongue every 5 minutes if needed for Chest Pain. May repeat every 5 minutes as needed up to 3 times. Call 911 if not resolved after 3 doses. 15 Tablet 10/10/19 24 Active lisdexamfetamine (VYVANSE) 20 mg capsule TAKE ONE CAPSULE EVERY MORNING 30 Capsule 4 5:49 PM CDT 12/18/19 24 Active ergocalciferol (Vitamin D2) 50,000 unit capsuleIndications :Vitamin D deficiency Take 1 Capsule (50,000 units) by mouth once weekly. 16 Capsule 12/26/19 24 Active semaglutide (Ozempic) 2 mg/3 mL subcutaneous penIndications:Pre diabetes Inject 0.25 mg subcutaneous once weekly. 2 mL 02/03/20 24 Active lisdexamfetamine (VYVANSE) 40 mg capsule Take 1 capsule by mouth every morning. 60 Capsule 4 7:56 PM CDT 03/02/20 24 Active omeprazole (PRILOSEC) 20 mg Delayed-Release capsuleIndications :Chronic GERD Take 1 Capsule (20 mg) by mouth once daily before a meal. twice a day 90 Capsule 3 04/28/20 24 Active semaglutide, weight loss, (Wegovy) 0.5 mg/0.5 mL subcutaneous penIndications:Pre diabetes,Class 1 obesity due to excess calories with serious comorbidity and body mass index (BMI) of 34.0 to 34.9 in adult,Bariatric surgery status,SVT (supraventricular tachycardia) (HC),JOSE (obstructive sleep apnea),Insulin resistance,Hypothy roidism, unspecified type,Hyperlipidemi a, unspecified hyperlipidemia type Inject 0.5 mg subcutaneous once weekly. 6 mL 3 05/26/20 24 Active metFORMIN (GLUCOPHAGE XR) 500 mg Extended-Release tabletIndications: Prediabetes Take 4 Tablets (2,000 mg) by mouth once daily. 360 Tablet 2 05/26/20 24 Active ciprofloxacin-dexA METHasone (Ciprodex) otic suspensionIndicati ons:Dysfunction of both eustachian tubes Place 4 Drops into both ears two times daily. Use in the ears if there is drainage 6 mL 08/07/19 25 Active Active Problems Problem Noted Date Diagnosed Date Prediabetes 05/14/2023 Bariatric surgery status 04/02/2013 SVT (supraventricular tachycardia) 06/24/2011 Obesity, unspecified 06/24/2011 Anemia, unspecified 06/24/2011 Resolved Problems Problem Noted Date Diagnosed Date Resolved Date Diabetes mellitus type II 06/24/2011 Overview (09/29/2013): a system change updated this record. This will not affect patient care or billing. This comment can be deleted. Encounters Date Type Department Care Team Description 08/05/2024 Nurse Triage [facility] [address] [facility] [place] [address] Wilmar Avitia MD Refill Request (Ciprodex otic) 08/03/2024 3:05 PM CONSULTING SALES EXECUTIVE - 08/03/2024 11:59 PM CONSULTING SALES EXECUTIVE Hospital Encounter [facility] [place] [facility] [address] [facility] [address] [place], [place] [id number] Visit for screening mammogram 08/03/2024 Travel from Last 3 Months Immunizations Name Administration Dates Next Due Tdap 05/22/2023 Zoster (Shingrix-RZV, recombinant) 10/10/2023, Family History Medical History Relation Name Comments Cancer Father nasal Heart Disease Father CABG after 55 Unknown Father carotid artery stenosis Chronic fatigue Mother Fibromyalgia Mother Scoliosis Mother Unknown Mother TBI's due to fa lls Cancer-breast No Family History Cancer-colon No Family History Cancer-ovarian No Family History Relation Name Status Comments Father Alive Mother Alive Social History Tobacco Use Types Packs/Day Years Used Date Smoking Tobacco: Never Smokeless Tobacco: Never Comments:Smoked for less peter n a year Senior year of high school Alcohol Use Standard Drinks/Week Comments Not Currently 0 (1 standard drink = 0.6 oz pur e alcohol) 1994 socially PHQ-2 Answer Date Recorded PHQ-2 TOTAL SCORE 2 05/22/2023 Social Connections Answer Date Recorded Do you often feel lonely or isolated from those around you? 0 05/14/2023 Financial Resource Strain Answer Date R ecorded Difficulty of Paying Living Expenses 3 05/14/2023 Difficulty of Paying Living Expenses Not on file 05/14/2023 Food Insecurity Answer Date Recorded Do you worry your food will run out before you are able to buy more? 1 05/14/2023 Transportation Needs Answer Date Record ed Does lack of transportation keep you from medica l appointments? 1 05/14/2023 Does lack of transportation keep you from work, meetings or getting things that you need? 1 05/14/2023 Housing Stability Answer Date Recorded What is your housing situation today? 1 05/14/2023 Comments No Sex and Gender Information Value Date Recorded Sex Assigned at Not on file Legal Sex Female 7:03 AM CONSULTING SALES EXECUTIVE Gender Identity Not on file Sexual Orientation Not on file Obstetrics History Last Filed Vital Signs Vital Sign Reading Time Taken Comments Blood Pressure 132/72 05/26/2024 9:07 AM CONSULTING SALES EXECUTIVE Pulse 84 05/26/2024 9:07 AM CONSULTING SALES EXECUTIVE Temperature 36.3 C (97.3 F) 08/01/2023 6:10 PM CONSULTING SALES EXECUTIVE Respiratory Rate 16 08/01/2023 6:10 PM CONSULTING SALES EXECUTIVE Oxygen Saturation 97% 11/28/2023 10:12 AM CDT Inhaled Oxygen Concentration - - Weight 82.8 kg (182 lb 9.6 oz) 05/26/2024 9:07 A M CONSULTING SALES EXECUTIVE Height 165.3 cm (5' 5.08) 12/25/2023 8:53 AM CD T Body Mass Index 30.31 12/25/2023 8:53 AM CDT Plan of Treatment Health Maintenance Due Date Last Done Comments HIV for age 15-65 1985 Hepatitis C screening for ag e 18-79 02/13/1988 Pneumococcal series for age 50+ (1 of 2 - PCV) 1989 Pap test for age 21-65 1991 Colonoscopy through age 75 2015 COVID-19 vaccine series ( - 2023- season) 2024 Influenza for age 50-64 03/15/2024 Depression screening for age 12+ 05/22/2024 05/22/20 23 BMI (ht and wt on same day) for age 18+ 12/24/2024 12/25/2023, 05/22/2023, 05/14/2023, Additional history exists Mammogram for age 45-75 08/03/2025 08/03/2024, 06/04 Lipids for age 45-75 12/24/2028 12/25/2023 Tetanus booster 05/22/2033 05/22/2023 Tdap Completed 05/22/2023 Zoster (shingles) series for age 50+ Completed 10/10/2023, 05/22/2023 Procedures Procedure Name Priority Date/Time Associated Diagnosis Comments XR MAMMO FELICITAS BILAT SCREEN IMPLANT Routine 08/03/2024 3:26 PM CONSULTING SALES EXECUTIVE Visit for screening mammogram LIPID PANEL W REFLEX MEASURED LDL Routine 12/25/2023 10:30 AM CDT Class 1 obesity due to excess calories with serious comorbidity and body mass index (BMI) of 34.0 to 34.9 in adult from Last 3 Months or Most Recently Relevant to Health Maintenance Results * XR MAMMO FELICITAS BILAT SCREEN IMPLANT (08/03/2024 3:26 PM CONSULTING SALES EXECUTIVE) Anatomical Region Laterality Modality BREASTS, Breast Left, Breast Right Bilateral Mammography Impressions 08/04/2024 2:22 PM CONSULTING SALES EXECUTIVE There is no radiographic evidence for malignancy. Recommend annual mammograms. MAMMOGRAM ASSESSMENT: ACR 2 Benign PATIENTS: You will also receive a letter with your examination results in an easy to read format. If you have questions about your results, please contact your referring provider. Narrative 08/04/2024 2:22 PM CONSULTING SALES EXECUTIVE For Patients: As a result of the Cures Act, medical imaging exams and procedure reports are released immediately into your electronic medical record. You may view this report before your referring provider. If you have questions, please contact your health care provider. XR MAMMO FELICITAS BILAT SCREEN IMPLANT [[id number]] CLINICAL HISTORY: This is an asymptomatic 54 y.o. patient. INDICATION FOR EXAM: Mammogram Screening. TECHNIQUE: CC & MLO views were obtained. Implant displacement views were obtained. This study was evaluated with the assistance of Computer-Aided Detection. Breast Tomosynthesis was used in interpretation. COMPARISON FILMS: Yes 06/04/23 [facility] FINDINGS: There are scattered areas of fibroglandular density. No suspicious masses or microcalcifications. There are breast implant(s) present.. us Mony Molina MD MAMMO Final R esult * (ABNORMAL) LIPID PANEL W REFLEX MEASURED LDL (12/25/2023 10:30 AM CDT) CHOLESTEROL,TOTAL 212(H) 100 - 199 mg/dL 12/25/2023 11:58 AM CDT [facility] Comment: Cholesterol, Total Reference Ranges Desirable <200 mg/dL Borderline 200-239 mg/dL High >=240 mg/dL TRIGLYCERIDES 59 <150 mg/dL 12/25/2023 11:58 AM CDT [facility] HDL CHOLESTEROL 64 >40 mg/dL 11:58 AM CDT [facility] NON-HDL CHOLESTEROL 148(H) <145 mg/dl 12/25/2023 11:58 AM CDT [facility] CHOL/HDL RATIO 3.31 <4.50 12/25/2023 11:58 AM CDT [facility] LDL CHOLESTEROL 136(H) <=130 mg/dL 12/25/2023 11:58 AM CDT [facility] VLDL CHOLESTEROL 12 <=30 mg/dL 12/25/19 11:58 AM CDT [facility] PROVIDER ORDERED STATUS RANDOM 12/25/2023 11:58 AM CDT [facility] Blood BLOOD SPECIMEN / Unknown Venipuncture / Unknown 12/25/2023 10:30 AM CDT 12/25/2023 10:30 AM CDT us Janny Perez MD CHEMISTRY Final Result [facility] [address] [place] [address] from Last 3 Months or Most Recently Relevant to Health Maintenance Insurance [facility] Advance Directives * Full Code (Latest Code Status on File) Date Activated Date Inactivated Comments 07/05/2011 6:19 AM 07/05/2011 3:58 PM * Full Code Date Activated Date Inactivated Comments 06/24/2011 11:23 AM 06/25/2011 8:05 PM Care Teams Coin Rolling Machine Operator Relationship Specialty Start Date End Date Pcp, No . PCP - General 07/31/24
--- OUTSIDE RECORDS SUMMARY | 2024-09-07 15:18 | XMS_ITS | Encounter Summary ---
Author Organization [facility] Address [address] [place] [address]. [place] [address] Care Team Providers Care Folded Towel Machine Operator Name Role Phone Tammy Freitas ACCOUNTS CLERK Primary Care Prov ider Encounter Details Date [...] on file Legal Sex Female 3:45 AM PAPER GOODS MACHINE OPERATOR Gender Identity Not on file Sexual Orientation Not on file documented as of this encounter Plan of Treatment Not on file documented as of this encounter Visit Diagnoses Not on filedocumented in this encounter Care Teams Folded Towel Machine Operator Relationship Specialty Start Date End Date Tammy Freitas, [facility] [address] [place] [address] PCP - General Nurse Practitioner - Adult Health 02/19/18 documented as of this encounter
--- OUTSIDE RECORDS SUMMARY | 2024-09-07 15:18 | XMS_ITS | Encounter Summary ---
Author Organization [facility] Address [facility] [place] [address] Care Team Providers Care House Calls Nurse Name Role Phone Sveta Morrison Primary Care Provider [phone] Tammy Freitas CHANGE CONSULTANT Primary Care Prov ider Gamaliel Triana MD Unavailable [phone] Priscila Aleman APRN BRILLIANDEER LOOPER Unavailable [phone] Reason for Visit * Reason Onset Date Comments Other 09/15/2012 Encounter Details Date Type Department Care Team (Late st Contact Info) Description 09/15/2012 Telephone [facility] [place] [address] [place] [address] Oscar Todd MD [id number] [place] [address] Other Social History Tobacco Use Types Packs/Day Years Used Date Smoking Tobacco: Never Alcohol Use Standard Drinks/Week Comments No 0 (1 standard drink = 0.6 oz pur e alcohol) Comments No Sex and Gender Information Value Date Recorded Sex Assigned at Not on file Legal Sex Female 3:45 AM NETEZZA DEVELOPER Gender Identity Not on file Sexual Orientation Not on file documented as of this encounter Miscellaneous Notes * Telephone Encounter - Margie Walton - 09/15/2012 8:42 AM CST Pt called stated she thinks she has a UTI and was wondering if you could call in an RX for her, shedoesn't have a primary Dr at this time. ZZA DEVELOPER documented in this encounter Plan of Treatment Not on file documented as of this encounter Visit Diagnoses Not on filedocumented in this encounter Care Teams House Calls Nurse Relationship Specialty Start Date End Date Sveta Morrison PCP - General 02/22/12 02/18/18 Tammy Freitas NP [facility] [address] [place] [id number] PCP - General Nurse Practitioner - Adult Health 02/19/18 Gamaliel Triana MD [address] [facility] [address] [place], [place] [address] Assigned Surgical Provider 05/06/20 02/04/21 Priscila Aleman APRN BRILLIANDEER LOOPER [address] [place], [place] [address] Assigned Neuroscience Provider 12/25/20 07/29/21 documented as of this encounter
--- OUTSIDE RECORDS SUMMARY | 2024-09-07 15:18 | XMS_ITS | Encounter Summary ---
Author Organization [facility] Address [address] [place] [address]. [place] [address] Care Team Providers Care Tire Center Manager Name Role Phone Tammy Freitas DOOR TO DOOR SELLING DISTRIBUTOR Primary Care Prov ider Encounter Details Date [...] on file Legal Sex Female 3:45 AM LINE MOVER Gender Identity Not on file Sexual Orientation Not on file documented as of this encounter Plan of Treatment Not on file documented as of this encounter Visit Diagnoses Not on filedocumented in this encounter Care Teams Tire Center Manager Relationship Specialty Start Date End Date Tammy Freitas, [facility] [address] [place] [address] PCP - General Nurse Practitioner - Adult Health 02/19/18 documented as of this encounter
--- OUTSIDE RECORDS SUMMARY | 2024-09-07 15:18 | XMS_ITS | Encounter Summary ---
Author Organization [facility] Address [address] [place] [address]. [place] [address] Care Team Providers Care Chemical Dependency Nurse Name Role Phone Herminio Sharma MD Primary Care Provider DoctorSundar MD Primary Care Provider UnavailSveta Matos Primary Care Provider [phone] Tammy Freitas MEAT DRESSER Primary Care Prov ider Gamaliel Triana MD Unavailable [phone] Priscila Aleman APRN TIP BANDING MACHINE OPERATOR Unavailable [phone] Encounter Details Date Type Department Care Team (Late st Contact Info) Description 04/20/[address] [place] [address] Herminio Sharma MD [place] [address] Social History Tobacco Use Types Packs/Day Years Used Date Smoking Tobacco: Former Cigarettes 0.5 9 0 07/15/1986 - 07/15/1995 Smokeless Tobacco: Never Alcohol Use Standard Drinks/Week Comments No 0 (1 standard drink = 0.6 oz pur e alcohol) Comments No Sex and Gender Information Value Date Recorded Sex Assigned at Not on file Legal Sex Female 3:45 AM TRUCK SALES REPRESENTATIVE Gender Identity Not on file Sexual Orientation Not on file documented as of this encounter Progress Notes * 04/20/2002 11:59 PM CDTAddended by: FILEMON COE on: 05/04/2002,9:24 AM Modules accepted: Progress Notes 00:0 0 Operative Report-NABOR PERRY () [Entered: Senior Product Manager (HIM)] : 70 1st S'T: 2nd ASS'T: PRE-OPERATIVE DIAGNOSIS: POST-OPERATIVE DIAGNOSIS: OPERATION: Colonoscopy. TIME: 8:03 a.m. INDICATION FOR PROCEDURE: A 32-year-old female with a history of multiple polyps remove d at around age 21 or so. This was in [place]. She was told to have follow-up every year. There i s a family history of colon cancer, that being her grandfather. The patient herself is asymptomatic. ALLERGIES: Penicillin. PHYSICAL EXAMINATION: Heart and lungs unremarkable. MEDICATION: Sublima ze 0.1 mg, Versed 2 mg, Atropine 0.6 mg, all IV. FINDINGS: After obtaining informed consent includi ng discussion of medication reaction risk, risk of bleeding, etc., and administering premedication an d performing normal digital examination, the Olympus video colonoscope was introduced in the usual fa shion. The prep was good. The scope was advanced to the cecum. The appendiceal area was seen and p hotographed. The valve area was seen and entered. The distal several centimeters of ileum were unre markable. A picture was taken. The colonic mucosa was normal throughout. Retroflexion view in the r ectum is negative. The patient tolerated the procedure well. The scope was withdrawn. ASSESSMENT: 1) Normal exam. 2) History of polyps. I wonder if these are not juvenile polyps. RECOMMENDATION: She will check with her doctor in [place] to see what type of polyps these were. If they were juv enile or hyperplastic, no special follow-up is needed. Of course, if they are adenomatous, then I wo uld say flexible sigmoidoscopy in two years, re- colonoscopy four years. Dr. Sharma as usual. EM# [id number] NABOR BERUMEN MD MT: Document: [id number] [place], [place] Name: CHULA TAO LCN: RIVAS DSC: 04/20/2002 [place], [place] Name: MR#: : Procedure Date: CHULA TAO 00 [id number] 04/20/2002 Doctor: NABOR BERUMEN MD OPERATIVE REPORT Page 1 of 2 Electronic ally filed by Filemon Coe 05/04/2002 9:24 AM documented in this encounter Plan of Treatment Not on file documented as of this encounter Visit Diagnoses Not on filedocumented in this encounter Care Teams Chemical Dependency Nurse Relationship Specialty Start Date End Date Hermin[place] [address] PCP - General 10/19/02 02/21/12 Sundar Villeda MD PCP - General 08/30/01 10/18/02 Sveta Morrison PCP - General 02/22/12 02/18/18 Tammy Freitas NP [facility] [address] [facility] [place] [address] PCP - General Nurse Practitioner - Adult Health 02/19/18 Gamaliel Triana MD [address] [facility] [address] [place] [address] Assigned Surgical Provider 05/06/20 02/04/21 Priscila Aleman APRN TIP BANDING MACHINE OPERATOR [address] [place] [address] Assigned Neuroscience Provider 12/25/20 07/29/21 documented as of this encounter
--- OUTSIDE RECORDS SUMMARY | 2024-09-07 15:18 | XMS_ITS | Encounter Summary ---
Author Organization [facility] Address [address] [place] [address]. [place] [address] Care Team Providers Care Fly Finisher Name Role Phone Tammy Freitas NEIGHBORHOOD COORDINATOR Primary Care Prov ider Encounter Details Date Type Department Care Team (Latest Contact Info) Description 07/24/2024 Travel Social History Tobacco Use Types Packs/Day Years [...] on file Legal Sex Female 3:45 AM LAUNDRY SUPERINTENDENT Gender Identity Not on file Sexual Orientation Not on file documented as of this encounter Plan of Treatment Not on file documented as of this encounter Visit Diagnoses Not on filedocumented in this encounter Care Teams Fly Finisher Relationship Specialty Start Date End Date Tammy Freitas, [facility] [address] [place] [address] PCP - General Nurse Practitioner - Adult Health 02/19/18 documented as of this encounter
--- OUTSIDE RECORDS SUMMARY | 2024-09-07 15:18 | XMS_ITS | Encounter Summary ---
Author Organization [facility] Address [address] [place] [address] Care Team Providers Care Hearing Impaired Teacher Name Role Phone Tammy Freitas SIMULATION SPECIALIST Primary Care Prov ider Gamaliel Triana MD Unavailable [phone] Priscila Aleman APRN DRAWING MACHINE OPERATOR Unavailable [phone] Encounter Details Date Type Department Care Team (Late st Contact Info) Description 06/16/2018 MyC Medical Advice [facility] [address] [place] [address] [address] [place] [address] Noris Hernandez APRN DRAWING MACHINE OPERATOR Social History Tobacco Use Types Packs/Day Years Used Date Smoking Tobacco: Former Cigarettes 0.5 11 0 07/15/1986 - 07/15/1997 Smokeless Tobacco: Never Alcohol Use Standard Drinks/Week Comments No 0 (1 standard drink = 0.6 oz pur e alcohol) Comments No Sex and Gender Information Value Date Recorded Sex Assigned at Not on file Legal Sex Female 3:45 AM CHAIRMAN EMERITUS Gender Identity Not on file Sexual Orientation Not on file documented as of this encounter Plan of Treatment Not on file documented as of this encounter Visit Diagnoses Not on filedocumented in this encounter Care Teams Hearing Impaired Teacher Relationship Specialty Start Date End Date Tammy Freitas NP [facility] [address] [place] [address] PCP - General Nurse Practitioner - Adult Health 02/19/18 Gamaliel rTiana MD [address] [facility] [address] [place], [place] [address] Assigned Surgical Provider 05/06/20 02/04/21 Priscila Aleman APRN DRAWING MACHINE OPERATOR [address] [place], [place] [address] Assigned Neuroscience Provider 12/25/20 07/29/21 documented as of this encounter
[2024-09-07 15:29] VITALS: BP 113/78; PULSE 76; RESP 20; TEMP 36.8; O2SAT 96; BMI 28.7
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
--- NOTE | 2024-09-07 17:05 | CRLHL7_ITS ---
For Patients: As a result of the Century Cures Act, medical imaging exams and procedure reports are released immediately into your electronic medical record. You may view this report before your referring provider. If you have questions, please contact your health care provider. INDICATION: Epigastric pain. Hematemesis. TECHNIQUE: CT abdomen and pelvis acquired with 100 cc Omnipaque 350 IV contrast. COMPARISON: None. FINDINGS: Lower chest: Scattered atelectasis Liver: Unremarkable. Normal in size and attenuation. No suspicious masses. Gallbladder and bile ducts: Prior cholecystectomy. Pancreas: Unremarkable. No mass or inflammation. Spleen: Unremarkable. Normal in size. No masses. Adrenal glands: Unremarkable. No nodules. Kidneys: Tiny bilateral cortical hypodensities, too small to characterize.. No suspicious masses, stones, or hydronephrosis. GI tract: Postsurgical changes about the gastric cardia and body. Mild gastric wall thickening. Mild proximal colonic wall thickening accentuated by nondistention. Normal in caliber. No sign of mass or inflammation. Normal appendix. Vasculature: Abdominal aorta is normal in caliber. Mesenteric arteries are patent. Lymph nodes: No lymphadenopathy. Peritoneum/Abdominal Wall: Unremarkable. No sign of mass or infiltration. No free air or significant free fluid. Pelvis: Unremarkable. Bones: Unremarkable for age. IMPRESSION: Postsurgical changes about the gastric cardia and body, possibly gastric sleeve. Mild gastric wall thickening, possibly low-grade gastritis in the appropriate clinical setting. If symptomatology persists, consider endoscopic evaluation. Mild proximal colonic wall thickening accentuated by nondistention. Correlate for history of diarrheal illness. Otherwise, no acute intra-abdominal/pelvic abnormality. Please note that all CT scans at this facility use dose modulation, iterative reconstruction, and/or weight-based dosing when appropriate to reduce radiation dose to as low as reasonably achievable. Dictated by Spencer aCndelaria MD @ 09/07/2024 6:20:40 PM (Electronically Signed)
--- OUTSIDE RECORDS SUMMARY | 2024-09-07 17:12 | XMS_ITS | Encounter Summary ---
Author Organization [facility] Address [address] [place] [address] Care Team Providers Care Check Scaler Name Role Phone Sveta Morrison Primary Care Provider [phone] Tammy Freitas VICE PRESIDENT TALENT MANAGEMENT Primary Care Prov ider Gamaliel Triana MD Unavailable [phone] Priscila Aleman APRN PRODUCTION CONTROL COORDINATING CLERK Unavailable [phone] Reason for Visit * Reason Onset Date Comments Appointment 01/02/2018 schedule Encounter Details Date Type Department Care Team (Late st Contact Info) Description 01/02/2018 [place] [id number] [address] Unknown Appointment (schedule) Social History Tobacco Use Types Packs/Day Years Used Date Smoking Tobacco: Former Cigarettes 0.5 11 0 07/15/1986 - 07/15/1997 Smokeless Tobacco: Never Alcohol Use Standard Drinks/Week Comments No 0 (1 standard drink = 0.6 oz pur e alcohol) Comments No Sex and Gender Information Value Date Recorded Sex Assigned at Not on file Legal Sex Female 3:45 AM RN HEART Gender Identity Not on file Sexual Orientation Not on file documented as of this encounter Miscellaneous Notes * Telephone Encounter - Veda Patinoe - 01/02/2018 11:08 AM CDT [facility] Phone Message May a detailed message be left on voicemail: yes Reason for Call: Other: Pts information was left with AAKASH at [phone] (chemistry tutor transferredto Aakash). Pt would like to reschedule with Neurosurgery. Action Taken: Message routed to: [facility] ([facility]): Neuro documented in this encounter Plan of Treatment Not on file documented as of this encounter Visit Diagnoses Not on filedocumented in this encounter Care Teams Check Scaler Relationship Specialty Start Date End Date Sveta Morrison PCP - General 02/22/12 02/18/18 Tammy Freitas NP [facility] [address] [place], [place] [address] PCP - General Nurse Practitioner - Adult Health 02/19/18 Gamaliel Triana MD [address] [facility] [address] [place], [place] [address] Assigned Surgical Provider 05/06/20 02/04/21 Priscila Aleman APRN PRODUCTION CONTROL COORDINATING CLERK [address] [place], [place] [address] Assigned Neuroscience Provider 12/25/20 07/29/21 documented as of this encounter
--- OUTSIDE RECORDS SUMMARY | 2024-09-07 17:12 | XMS_ITS | Encounter Summary ---
Author Organization [facility] Address [address] [place] [address]. [place] [address] Care Team Providers Care Rehab Services Aide Name Role Phone Herminio Sharma MD Primary Care Provider DoctorSundar MD Primary Care Provider UnavailSveta Matos Primary Care Provider [phone] Tammy Freitas TURNTABLE WORKER Primary Care Prov ider Gamaliel Triana MD Unavailable [phone] Priscila Aleman APRN MESSAGE BROKER DEVELOPER Unavailable [phone] Encounter Details Date Type Department Care Team (Late st Contact Info) Description 10/13/[address] [place] [address] Herminio Sharma [place] [address] ER (Primary Dx) Social History Tobacco Use Types Packs/Day Years Used Date Smoking Tobacco: Former Cigarettes 0.5 9 0 07/15/1986 - 07/15/1995 Smokeless Tobacco: Never Alcohol Use Standard Drinks/Week Comments No 0 (1 standard drink = 0.6 oz pur e alcohol) Comments No Sex and Gender Information Value Date Recorded Sex Assigned at Not on file 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 HISTORY [...] [id number] _ MARVEL SORIANO MD MT: Document: [id number] [facility] [place] Name: CHULA TAO EMERGENCY ROOM ENCOUNTER Page 3 of 3 LC N: ERA DSC: 10/13/2002 [place], [place] Name: MR#: : Admit Date: CHULA TAO [id number] 1970 10/13/2002 Doctor: MARVEL SORIANO MD EMERGENCY ROOM EN COUNTER Page 1 of 3 Electronically filed by Andre Webster 10/21/2002 11:49 AM documented in this encounter Plan of Treatment Not on file documented as of this encounter Visit Diagnoses Diagnosis ER- Primary documented in this encounter Care Teams Rehab Services Aide Relationship Specialty Start Date End Date Herminio Sharma [place] [address] PCP - General 10/19/02 02/21/12 Sundar Villeda MD PCP - General 08/30/01 10/18/02 Sveta Morrison PCP - General 02/22/12 02/18/18 Tammy Freitas NP [facility] [address] [place] [address] PCP - General Nurse Practitioner - Adult Health 02/19/18 Gamaliel Triana MD [address] [place] [address] Assigned Surgical Provider 05/06/20 02/04/21 Priscila Aleman APRN MESSAGE BROKER DEVELOPER [address] [place], [place] [address] Assigned Neuroscience Provider 12/25/20 07/29/21 documented as of this encounter
--- OUTSIDE RECORDS SUMMARY | 2024-09-07 17:12 | XMS_ITS | Encounter Summary ---
Author Organization [place] [facility] Address [address] [place] [address]. [place] [address] Care Team Providers Care Employer Relations Representative Name Role Phone Tammy Freitas DRAWING IN MACHINE TENDER HELPER Primary Care Prov ider Encounter Details Date [...] on file Legal Sex Female 3:45 AM BUILDING CONSTRUCTION SUPERVISOR Gender Identity Not on file Sexual Orientation Not on file documented as of this encounter Plan of Treatment Not on file documented as of this encounter Visit Diagnoses Not on filedocumented in this encounter Care Teams Employer Relations Representative Relationship Specialty Start Date End Date Tammy Freitas, [facility] [address] [place] [address] PCP - General Nurse Practitioner - Adult Health 02/19/18 documented as of this encounter
--- OUTSIDE RECORDS SUMMARY | 2024-09-07 17:12 | XMS_ITS | Encounter Summary ---
Author Organization [place] Address [address] [place] [address]. 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
--- OUTSIDE RECORDS SUMMARY | 2024-09-07 17:12 | XMS_ITS | Clinical Summary ---
Author Organization [facility] Address [address] [place] [address] Care Team Providers Care Private Sector Executive Name Role Phone Pcp, No Primary Care Provider Unavailabl e Allergies Active Allergy Reactions Criticality Noted Date Comments Latex Hives,Other - Describe In Comment Field High 06/24/2011 Pt is still able to eat bananas., Comment: Hives, Comment: Hives [place] (Prunus Persica) Rash Medium 06/24/2011 Rash over [...] Department Care Team Description 08/05/2024 Nurse Triage [facility] [address] [place] [address] Wilmar Avitai MD Refill Request (Ciprodex otic) 08/03/2024 3:05 PM TIRE BUFFER - 08/03/2024 11:59 PM TIRE BUFFER Hospital Encounter [facility] [place] [address] [address] [facility] [address] [place], [place] [id number] Visit for screening mammogram 08/03/2024 Travel from [...] on file Legal Sex Female 7:03 AM TIRE BUFFER Gender Identity Not on file Sexual Orientation Not on file Obstetrics History Last Filed Vital Signs Vital Sign Reading Time Taken Comments Blood Pressure 132/72 05/26/2024 9:07 AM TIRE BUFFER Pulse 84 05/26/2024 9:07 AM TIRE BUFFER Temperature 36.3 C (97.3 F) 08/01/2023 6:10 PM TIRE BUFFER Respiratory Rate 16 08/01/2023 6:10 PM TIRE BUFFER Oxygen Saturation 97% 11/28/2023 10:12 AM CDT Inhaled Oxygen Concentration - - Weight 82.8 kg (182 lb 9.6 oz) 05/26/2024 9:07 A M TIRE BUFFER Height 165.3 cm (5' 5.08) 12/25/2023 8:53 [...] BILAT SCREEN IMPLANT Routine 08/03/2024 3:26 PM TIRE BUFFER Visit for screening mammogram LIPID PANEL W REFLEX MEASURED LDL Routine 12/25/2023 10:30 AM CDT Class 1 obesity due to excess calories with serious comorbidity and body mass index (BMI) of 34.0 to 34.9 in adult from Last 3 Months or Most Recently Relevant to Health Maintenance Results * XR MAMMO FELICITAS BILAT SCREEN IMPLANT (08/03/2024 3:26 PM TIRE BUFFER) Anatomical Region Laterality Modality BREASTS, Breast Left, Breast Right Bilateral Mammography Impressions 08/04/2024 2:22 PM TIRE BUFFER There is no radiographic evidence for malignancy. Recommend annual mammograms. MAMMOGRAM ASSESSMENT: ACR 2 Benign PATIENTS: You will also receive a letter with your examination results in an easy to read format. If you have questions about your results, please contact your referring provider. Narrative 08/04/2024 2:22 PM TIRE BUFFER For Patients: As a result of the Cures Act, medical imaging exams and procedure reports are released immediately into your electronic medical record. You may view this report before your referring provider. If you have questions, please contact your health care provider. XR MAMMO FELICITAS BILAT SCREEN IMPLANT [[id number]] CLINICAL HISTORY: This is an asymptomatic 54 [...] - 199 mg/dL 12/25/2023 11:58 AM CDT [facility] Comment: Cholesterol, Total Reference Ranges Desirable <200 mg/dL Borderline 200-239 mg/dL High >=240 mg/dL TRIGLYCERIDES 59 <150 mg/dL 12/25/2023 11:58 AM CDT [facility] HDL CHOLESTEROL 64 >40 mg/dL 11:58 AM CDT [facility] NON-HDL CHOLESTEROL 148(H) <145 mg/dl 12/25/2023 11:58 AM CDT [facility] CHOL/HDL RATIO 3.31 <4.50 12/25/2023 11:58 AM CDT [facility] LDL CHOLESTEROL 136(H) <=130 mg/dL 12/25/2023 11:58 AM CDT [facility] VLDL CHOLESTEROL 12 <=30 mg/dL 12/25/19 11:58 AM CDT [facility] PROVIDER ORDERED STATUS RANDOM 12/25/2023 11:58 AM CDT [facility] Blood BLOOD SPECIMEN / Unknown Venipuncture / Unknown 12/25/2023 10:30 AM CDT 12/25/2023 10:30 AM CDT us Janny Perez MD CHEMISTRY Final Result [facility] [address] [place] [address] from Last 3 Months or Most Recently Relevant to Health Maintenance Insurance [facility] Advance Directives * Full Code (Latest Code Status on File) Date Activated Date Inactivated Comments 07/05/2011 6:19 AM 07/05/2011 3:58 PM * Full Code Date Activated Date Inactivated Comments 06/24/2011 11:23 AM 06/25/2011 8:05 PM Care Teams Private Sector Executive Relationship Specialty Start Date End Date Pcp, No . PCP - General 07/31/24
--- OUTSIDE RECORDS SUMMARY | 2024-09-07 17:12 | XMS_ITS | Encounter Summary ---
Author Organization [place] Address [facility] [place] [address] Care Team Providers Care Gear Machinist Name Role Phone Sveta Morrison Primary Care Provider [phone] Tammy Freitas FRUIT OR NUT FARMER Primary Care Prov ider Gamaliel Triana MD Unavailable [phone] Priscila Aleman APRN RABBLE FURNACE TENDER Unavailable [phone] Reason for Visit * Reason Onset Date Comments Other 09/15/2012 Encounter Details Date Type Department Care Team (Late st Contact Info) Description 09/15/2012 Telephone [facility] [place] [address] [place] [address] Oscar Todd MD [id number] [place] [address] Other Social History Tobacco Use Types Packs/Day Years Used Date Smoking Tobacco: Never Alcohol Use Standard Drinks/Week Comments No 0 (1 standard drink = 0.6 oz pur e alcohol) Comments No Sex and Gender Information Value Date Recorded Sex Assigned at Not on file Legal Sex Female 3:45 AM SCRIPT WRITER Gender Identity Not on file Sexual Orientation Not on file documented as of this encounter Miscellaneous Notes * Telephone Encounter - Margie Walton - 09/15/2012 8:42 AM CST Pt called stated she thinks she has a UTI and was wondering if you could call in an RX for her, shedoesn't have a primary Dr at this time. PT WRITER documented in this encounter Plan of Treatment Not on file documented as of this encounter Visit Diagnoses Not on filedocumented in this encounter Care Teams Gear Machinist Relationship Specialty Start Date End Date Sveta Morrison PCP - General 02/22/12 02/18/18 Tammy Freitas NP [facility] [address] [place] [address] PCP - General Nurse Practitioner - Adult Health 02/19/18 Gamaliel Triana MD [address] [facility] [address] [place], [place] [address] Assigned Surgical Provider 05/06/20 02/04/21 Priscila Aleman APRN RABBLE FURNACE TENDER [address] [place], [place] [address] Assigned Neuroscience Provider 12/25/20 07/29/21 documented as of this encounter
--- OUTSIDE RECORDS SUMMARY | 2024-09-07 17:12 | XMS_ITS | Encounter Summary ---
Author Organization [place] Address [address] [place] [address] Care Team Providers Care Cardiothoracic Icu Rn Name Role Phone Tammy Freitas DRAFTER CASTINGS Primary Care Prov ider Gamaliel Triana MD Unavailable [phone] Priscila Aleman APRN FOOD TRUCK CATERER Unavailable Encounter Details Date Type Department Care Team (Late st Contact Info) Description 06/16/2018 MyC Medical Advice [facility] Neurosurgery [address] [place] [address] [address] [place] [address] Noris Hernandez APRN FOOD TRUCK CATERER Social History Tobacco Use Types Packs/Day Years Used Date Smoking Tobacco: Former Cigarettes 0.5 11 0 07/15/1986 - 07/15/1997 Smokeless Tobacco: Never Alcohol Use Standard Drinks/Week Comments No 0 (1 standard drink = 0.6 oz pur e alcohol) Comments No Sex and Gender Information Value Date Recorded Sex Assigned at Not on file Legal Sex Female 3:45 AM BRAKE LINING FINISHER ASBESTOS Gender Identity Not on file Sexual Orientation Not on file documented as of this encounter Plan of Treatment Not on file documented as of this encounter Visit Diagnoses Not on filedocumented in this encounter Care Teams Cardiothoracic Icu Rn Relationship Specialty Start Date End Date Tammy Freitas NP [facility] [address] [place] [address] PCP - General Nurse Practitioner - Adult Health 02/19/18 Gamaliel Triana MD [address] [facility] [address] [place], [place] [address] Assigned Surgical Provider 05/06/20 02/04/21 Priscila Aleman APRN FOOD TRUCK CATERER [address] [place], [place] [address] Assigned Neuroscience Provider 12/25/20 07/29/21 documented as of this encounter
--- OUTSIDE RECORDS SUMMARY | 2024-09-07 17:12 | XMS_ITS | Encounter Summary ---
Author Organization [place] Address [address] [place] [address] Care Team Providers Care Industrial Gas Fitter Helper Name Role Phone Eliot Thornton MD Primary Care Provider DoctorSundar MD Primary Care Provider UnavailSveta Matos Primary Care Provider [phone] Tammy Freitas ACETYLENE TORCH BURNER Primary Care Prov ider Gamaliel Triana MD Unavailable [phone] Priscila Aleman APRN ASSEMBLER ERECTOR Unavailable [phone] Encounter Details Date Type Department Care Team (Late st Contact Info) Description 06/23/[address] [place] [address] Eliot Thornton MD [place] [address] ER ENCOUNTER,H&P,DISCHARGE SUMMARY (Primary Dx) [...] on file Legal Sex Female 3:45 AM PROCESSING TECHNOLOGIST Gender Identity Not on file Sexual Orientation Not on file documented as of this encounter Progress Notes * 06/23/2002 11:59 PM CSTAddended by: RIENALDO DIA on: 06/30/2002,11:29 AM Modules accepted: Progress Notes 00 :00 Emergency Department Encounter- TONY LARSON () [Entered: 00:00 Transc ription ([facility])] : 70 CHIEF COMPLAINT: Abdominal flank [...] 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 FAMILY [...] EM [id number] TONY LARSON MD MT: Document: [id number] Electronically filed by Reinalod Dia 06/30/2002 1 1:29 AM [place], [place] Name: CHULA TAO EMERGENCY ROOM ENCOUNTER Page 3 of 2 LCN: MS3 DSC: [place], [place] Name: MR#: D OB: Admit Date: CHULA TAO -66 1970 06/23/2002 Doctor: TONY LARSON MD EMERGENCY ROOM ENCOUNTER Page 1 of 2 00:00 History And Physical-FORMERLY [facility] REMI KENNEY (Irwin Mcekon) [Entered: 00:00 Legal Examiner (HIM)] : [birth year] 32-year-old white female social w orker presented to the Emergency Room with a several day history of some subcostal pelvic like pain p ressure associated with some intermittent chills and fever and leg heaviness over several days. In [facility] Emergency Room it was found by investigation [...] is marrie d. 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 Her paternal grandmother from a clotting disorder. [...] discuss ed the ultrasound with the radiologist master fire control technician who said that the ultrasound was nondiagnostic, that s he had some non-occlusive narrowing of her left subclavian which could be recurrent clot and/or stric ture. Recommended intervention of radiology consult. This will be requested. Will start the patien t empirically on Heparin. 2. Pyelonephritis. Will treat her with IV Tequin. [id number] REMI KENNEY MD MT: Document: [id number] [place], [place] Name: CHULA TAO HISTORY AND PHYSCIAL Page 2 of 2 LCN: MS3 DSC : [place], [place] Name: MR#: : Admit Date: CHULA TAO 004 [id number] 1970 06/23/2002 Doctor: REMI KENNEY MD HISTORY AND PHYSICAL Page 1 of 2 16:00 Discharge Summary-FORMERLY [facility] ELIOT THORNTON () [Entered: 00:00 Transcripti on ([facility])] : 70 Chula Tao is a [...] PE or other abnormality. The patient, in [facility], developed a migraine headache and took [...] headaches. [id number] ELIOT THORNTON MD MT: Document: [id number] [place], [place] Name: CHULA TAO Please refer to the Nursing Discharge Information Sheet f or more detailed information regarding diet, physical actvity limitations, medications and other pert inent instructions given to this patient upon discharge. DISCHARGE SUMMARY Page 2 of 2 LCN: MS3 D SC: 06/26/2002 [place], [place] Name: MR#: : Admit Date: Discharge [...] Primary documented in this encounter Care Teams Industrial Gas Fitter Helper Relationship Specialty Start Date End Date Eliot Thornton MD [place] [address] PCP - General 10/19/02 02/21/12 Sundar Villeda MD PCP - General 08/30/01 10/18/02 Sveta Morrison PCP - General 02/22/12 02/18/18 Tammy Freitas NP [facility] [address] [place] [address] PCP - General Nurse Practitioner - Adult Health 02/19/18 Gamaliel Triana MD [address] [facility] [address] [place] [address] Assigned Surgical Provider 05/06/20 02/04/21 Priscila Aleman APRN ASSEMBLER ERECTOR 500 [place] [address] Assigned Neuroscience Provider 12/25/20 07/29/21 documented as of this encounter
--- OUTSIDE RECORDS SUMMARY | 2024-09-07 17:12 | XMS_ITS | Clinical Summary ---
Author Organization [facility] Address [address] [place] [address] Care Team Providers Care Railroad Car Cleaner Name Role Phone Tammy Freitas VEGETABLE HARVEST WORKER Primary Care Prov ider Allergies Active Allergy [...] (08/13/2019): Added automatically from request for surgery [id number] Bariatric surgery status 04/02/2013 Anemia 06/24/2011 Diabetes [...] Description 07/26/2024 MyC Medical Advice [facility] 07/26/2024 MyC Medical Advice Initial Department My[facility], [facility] 07/26/2024 MyC Medical Advice Initial Department Mychart, [facility] 07/24/2024 10:15 AM [facility] [address] [place] [address] Memory loss (Primary Dx) 07/24/2024 Travel from [...] on file Legal Sex Female 3:45 AM VACCINATOR Gender Identity Not on file Sexual Orientation Not on file Last Filed Vital Signs Vital Sign Reading Time Taken Comments Blood Pressure 137/81 09/03/2019 9:38 AM VACCINATOR Pulse 65 09/03/2019 6:32 AM VACCINATOR Temperature 36.3 C (97.4 F) 09/03/2019 9:35 AM VACCINATOR Respiratory Rate 16 09/03/2019 9:35 AM VACCINATOR Oxygen Saturation 98% 09/03/2019 9:35 AM VACCINATOR Inhaled Oxygen Concentration - - Weight 88 kg (194 lb) 09/03/2019 6:32 AM VACCINATOR Height 170.2 cm (5' 7) 09/03/2019 6:32 AM VACCINATOR p er pt Body Mass Index 30.38 09/03/2019 6:32 AM VACCINATOR Plan of Treatment Not on file Procedures Procedure Name Priority Date/Time Associated Diagnosis Comments VITAMIN B12 Routine 07/24/2024 10:26 AM VACCINATOR Memory loss FOLATE Routine 07/24/2024 10:26 AM VACCINATOR Memory loss TSH WITH FREE T4 REFLEX Routine 07/24/2024 10:26 AM VACCINATOR Memory loss from Last 3 Months Results * TSH with free T4 reflex (07/24/2024 10:26 AM VACCINATOR) TSH 3.35 0.30 - 4.20 uIU/mL 07/24/2024 11:14 AM VACCINATOR [facility] Blood STRUCTURE OF RIGHT UPPER LIMB / Unknown Venipuncture / Unknown 07/24/2024 10:26 AM VACCINATOR 07/24/2024 10:27 AM VACCINATOR Anuel Tra[place] PA-C LAB - BLOOD ORDERAB LES Final Result [facility] [address] Lab (1st floor, no room number) [place] [address], [facility] * Folate (07/24/2024 10:26 AM VACCINATOR) Folic Acid 9.4 4.6 - 34.8 ng/mL 07/24/2024 5:05 PM VACCINATOR [facility] Blood STRUCTURE OF RIGHT UPPER LIMB / Unknown Venipuncture / Unknown 07/24/2024 10:26 AM VACCINATOR 07/24/2024 10:27 AM VACCINATOR Anuel Traore PA-C LAB - BLOOD ORDERAB LES Final Result [facility] [place] [facility] [address] [facility], Room [address] [address], [facility] * Vitamin B12 (07/24/2024 10:26 AM VACCINATOR) Vitamin B12 640 232 - 1,245 pg/mL 07/24/2024 5:28 PM VACCINATOR [facility] Blood STRUCTURE OF RIGHT UPPER LIMB / Unknown Venipuncture / Unknown 07/24/2024 10:26 AM VACCINATOR 07/24/2024 10:27 AM VACCINATOR Anuel Traore PA-C LAB - BLOOD ORDERAB LES Final Result [facility] [facility] [address] [facility], [address] [address], [facility] from Last 3 Months Insurance [facility] Advance Directives For more information, please contact: [phone] * Full Code (Latest Code Status on File) Date Activated Date Inactivated Comments 03/12/2012 12:17 PM 03/14/2012 2:23 PM Care Teams Railroad Car Cleaner Relationship Specialty Start Date End Date Tammy Freitas NP [employer] [facility] [address] [facility] [place] [address] PCP - General Nurse Practitioner - Adult Health 02/19/18
--- OUTSIDE RECORDS SUMMARY | 2024-09-07 17:12 | XMS_ITS | Encounter Summary ---
Author Organization [place] Address [address] [place] [address]. [place] [address] Care Team Providers Care Screener Operator Name Role Phone Herminio Sharma MD Primary Care Provider DoctorSundar MD Primary Care Provider UnavailSveta Matos Primary Care Provider [phone] Tammy Freitas FERRYBOAT CAPTAIN Primary Care Prov ider Gamaliel Triana MD Unavailable [phone] Priscila Aleman APRN LABOR DELIVERY RN Unavailable [phone] Encounter Details Date Type Department Care Team (Late st Contact Info) Description 04/20/[address] [place] [address] Herminio Sharma [place] [address] Social History Tobacco Use Types Packs/Day Years Used Date Smoking Tobacco: Former Cigarettes 0.5 9 0 07/15/1986 - 07/15/1995 Smokeless Tobacco: Never Alcohol Use Standard Drinks/Week Comments No 0 (1 standard drink = 0.6 oz pur e alcohol) Comments No Sex and Gender Information Value Date Recorded Sex Assigned at Not on file Legal Sex Female 3:45 AM CHIP TESTER Gender Identity Not on file Sexual Orientation Not on file documented as of this encounter Progress Notes * 04/20/2002 11:59 PM CDTAddended by: FILEMON COE on: 05/04/2002,9:24 AM Modules accepted: Progress Notes 00:0 0 Operative Report-NABOR PERRY () [Entered: Working Supervisor (HIM)] : 70 1st S'T: 2nd ASS'T: PRE-OPERATIVE DIAGNOSIS: POST-OPERATIVE DIAGNOSIS: OPERATION: Colonoscopy. TIME: 8:03 a.m. INDICATION FOR PROCEDURE: A 32-year-old female with a history of multiple polyps remove d at around age 21 or so. This was in [place]. She was told to have follow-up every [...] She will check with her doctor in [place] to see what type of polyps these were. If they were juv enile or hyperplastic, no special follow-up is needed. Of course, if they are adenomatous, then I wo uld say flexible sigmoidoscopy in two years, re- colonoscopy four years. Dr. Sharma as usual. EM# [id number] NABOR BERUMEN MD MT: Document: [id number] [place], [place] Name: CHULA TAO LCN: RIVAS DSC: 04/20/2002 [place], [place] Name: MR#: : Procedure Date: CHULA TAO 00 [id number] 1970 04/20/2002 Doctor: NABOR BERUMEN MD OPERATIVE REPORT Page 1 of 2 Electronic ally filed by Filemon Coe 05/04/2002 9:24 AM documented in this encounter Plan of Treatment Not on file documented as of this encounter Visit Diagnoses Not on filedocumented in this encounter Care Teams Screener Operator Relationship Specialty Start Date End Date Herminio [place] [address] PCP - General 10/19/02 02/21/12 Sundar Villeda MD PCP - General 08/30/01 10/18/02 Sveta Morrison PCP - General 02/22/12 02/18/18 Tammy Freitas NP [facility] [address] [facility] [address] [place] [address] PCP - General Nurse Practitioner - Adult Health 02/19/18 Gamaliel Triana MD [address] [facility] [address] [place] [address] Assigned Surgical Provider 05/06/20 02/04/21 Priscila Aleman APRN LABOR DELIVERY RN 500 [place] [address] Assigned Neuroscience Provider 12/25/20 07/29/21 documented as of this encounter
--- OUTSIDE RECORDS SUMMARY | 2024-09-07 17:12 | XMS_ITS | Encounter Summary ---
Author Organization [place] Address [facility] [place] [address] Care Team Providers Care Room Service Clerk Name Role Phone Sveta Morrison Primary Care Provider [phone] Tammy Freitas SENIOR AUTOMATION ENGINEER Primary Care Prov ider Gamaliel Triana MD Unavailable [phone] Priscila Aleman APRN BLUEPRINT BLOCKER Unavailable [phone] Encounter Details Date Type Department Care Team (Late st Contact Info) Description 09/12/2012 Abstract M [facility] [place] [address] [place] [address] Amalia Kaminski PA-C [address] [place] [address] Social History Tobacco Use Types Packs/Day Years Used Date Smoking Tobacco: Never Alcohol Use Standard Drinks/Week Comments No 0 (1 standard drink = 0.6 oz pur e alcohol) Comments No Sex and Gender Information Value Date Recorded Sex Assigned at Not on file Legal Sex Female 3:45 AM TUBE PUSHER Gender Identity Not on file Sexual Orientation Not on file documented as of this encounter Plan of Treatment Not on file documented as of this encounter Visit Diagnoses Not on filedocumented in this encounter Care Teams Room Service Clerk Relationship Specialty Start Date End Date Sveta Morrison PCP - General 02/22/12 02/18/18 Tammy Freitas NP [facility] [address] [place] [address] PCP - General Nurse Practitioner - Adult Health 02/19/18 Gamaliel Triana MD [address] [facility] [address] [place] [address] Assigned Surgical Provider 05/06/20 02/04/21 Priscila Aleman APRN BLUEPRINT BLOCKER [address] [place] [address] Assigned Neuroscience Provider 12/25/20 07/29/21 documented as of this encounter
--- OUTSIDE RECORDS SUMMARY | 2024-09-07 17:12 | XMS_ITS | Encounter Summary ---
Author Organization [place] Address [address] [place] [address]. [place] [address] Care Team Providers Care Spine Surgeon Name Role Phone Herminio Sharma MD Primary Care Provider Sveta Morrison Primary Care Provider [phone] Tammy Freitas IS PROJECT MANAGER Primary Care Prov ider Gamaliel Triana MD Unavailable [phone] Priscila Aleman APRN OUTSIDE SALES PROFESSIONAL Unavailable [phone] Encounter Details Date Type Department Care Team (Late st Contact Info) Description 02/22/[address] [place] [address] Herminio Sharma [place] [address] ER (Primary Dx) Social History Tobacco Use Types Packs/Day Years Used Date Smoking Tobacco: Former Cigarettes 0.5 9 0 07/15/1986 - 07/15/1995 Smokeless Tobacco: Never Alcohol Use Standard Drinks/Week Comments No 0 (1 standard drink = 0.6 oz pur e alcohol) Comments No Sex and Gender Information Value Date Recorded Sex Assigned at Not on file Legal Sex Female 3:45 AM PILOT Gender Identity Not on file Sexual Orientation Not on file documented as of this encounter Progress Notes * 02/22/2003 11:59 PM CDTAddended by: ANDRE WEBSTER on: 03/01/2003,4:04 PM Modules accepted: Progress Notes 00 :00 Emergency Department Encounter-FRANK YOON) [Entered: 00:00 Transcr margarito ([facility])] : 70 CHIEF COMPLAINT: Coughing. HISTORY [...] smoke or use alcohol. She works in [employer] and has been working about 100 hours [...] patient has an episode of bronchitis in [facility] ion to exacerbation of her asthma in [...] ZHU MD T: 02/24 11:55 MT: Document: [id number] [place], [place] Name: BRENDA MORALES EMERGENCY ROOM ENCOUNTER Page 3 of 2 LCN: HEATHER DSC: 02/22/2003 [place], [place] Name: MR#: : Admit Date: BRENDA TAO [id number] 02/22/2003 Doctor: FRANK ZHU MD EMERGENCY ROOM ENCOUNTER Page 1 of 2 Electronically file d by Andre Webster 03/01/2003 4:03 PM documented in this encounter Plan of Treatment Not on file documented as of this encounter Visit Diagnoses Diagnosis ER- Primary documented in this encounter Care Teams Spine Surgeon Relationship Specialty Start Date End Date Herminio Sharma [place] [address] PCP - General 10/19/02 02/21/12 Sveta Morrison [place] [address] PCP - General 02/22/12 02/18/18 Tammy Freitas NP [facility] [address] [place] [address] PCP - General Nurse Practitioner - Adult Health 02/19/18 Gamaliel Triana MD [address] [facility] [address] [place], [place] [address] Assigned Surgical Provider 05/06/20 02/04/21 Priscila Aleman APRN OUTSIDE SALES PROFESSIONAL [address] [place], [place] [address] Assigned Neuroscience Provider 12/25/20 07/29/21 documented as of this encounter
--- OUTSIDE RECORDS SUMMARY | 2024-09-07 17:13 | XMS_ITS | Encounter Summary ---
Author Organization [place] Address [address] [place] [address]. [place] [address] Care Team Providers Care Wood Heel Attacher Name Role Phone Herminio Sharma MD Primary Care Provider Sveta Morrison Primary Care Provider [phone] Tammy Freitas EXTRUSION PRESS SUPERVISOR Primary Care Prov ider Gamaliel Triana MD Unavailable [phone] Priscila Aleman APRN COMPUTER NUMERICAL CONTROL MACHINIST Unavailable [phone] Encounter Details Date Type Department Care Team (Late st Contact Info) Description 05/23/[address] [place] [address] Herminio Sharma [place] [address] ER ENCOUNTER (Primary Dx) Social [...] on file Legal Sex Female 3:45 AM AIRCRAFT RIVETER Gender Identity Not on file Sexual Orientation Not on file documented as of this encounter Progress Notes * 05/23/2003 11:59 PM [id number] 00:00 Emergency Department Encounter-[facility]ON[facility]) [Entered: Dionicio zuleta([facility])] : 70 CHIEF COMPLAINT: Cough. HISTORY OF [...] le. [id number]_ LAVERN MCDONNELL MD MT: Document: [id number] 3 [place], [place] Name: BRENDA TAO EMERGENCY ROOM ENCO UNTER Page 2 of 2 LCN: ERA DSC: 05/23/2003 [place], [place] Name: MR#: : Admit Date: BRENDA TAO -66 1970 05/23/2003 Doctor: LAVERN MCDONNELL MD EMERGENCY ROOM ENCOUNTER Page 1 of 2 Electronically filed by Mandy Smith 06/07/2003 1 2:16 PM documented in this encounter Plan of Treatment Not on file documented as of this encounter Visit Diagnoses Diagnosis ER ENCOUNTER- Primary documented in this encounter Care Teams Wood Heel Attacher Relationship Specialty Start Date End Date Herminio Sharma [place] [address] PCP - General 10/19/02 02/21/12 Sveta Morrison [place] [address] PCP - General 02/22/12 02/18/18 Tammy Freitas NP [facility] [address] [facility] [address] [facility] [place] [address] PCP - General Nurse Practitioner - Adult Health 02/19/18 Gamaliel Triana MD [address] [facility] [address] [place], [place] [address] Assigned Surgical Provider 05/06/20 02/04/21 Priscila Aleman APRN COMPUTER NUMERICAL CONTROL MACHINIST [address] [place], [place] [address] Assigned Neuroscience Provider 12/25/20 07/29/21 documented as of this encounter
--- OUTSIDE RECORDS SUMMARY | 2024-09-07 17:13 | XMS_ITS | Encounter Summary ---
Author Organization [facility] Address [address] [place] [id number] Care Team Providers Care Rake Operator Name Role Phone Tammy Freitas CHEMICAL LABORATORY TECHNICIAN Primary Care Prov ider Encounter Details Date Type Department Care Team (Late st Contact Info) Description 07/24/2024 10:15 AM SPONGE FISHERMAN Lab [facility] [address] [place] [id number] Memory loss (Primary Dx) Social History Tobacco [...] on file Legal Sex Female 3:45 AM SPONGE FISHERMAN Gender Identity Not on file Sexual Orientation Not on file documented as of this encounter Plan of Treatment Not on file documented as of this encounter Procedures Procedure Name Priority Date/Time Associated Diagnosis Comments TSH WITH FREE T4 REFLEX Routine 07/24/2024 10:26 AM SPONGE FISHERMAN Memory loss FOLATE Routine 07/24/2024 10:26 AM SPONGE FISHERMAN Memory loss VITAMIN B12 Routine 07/24/2024 10:26 AM SPONGE FISHERMAN Memory loss documented in this encounter Results * Vitamin B12 (07/24/2024 10:26 AM SPONGE FISHERMAN) Vitamin B12 640 232 - 1,245 pg/mL 07/24/2024 5:28 PM SPONGE FISHERMAN [facility] Blood STRUCTURE OF RIGHT UPPER LIMB / Unknown Venipuncture / Unknown 07/24/2024 10:26 AM SPONGE FISHERMAN 07/24/2024 10:27 AM SPONGE FISHERMAN [facility] [place] PA-C LAB - BLOOD ORDERAB LES Final Result LABORATORY [facility] [place] [facility] [address] [facility], [address] * Folate (07/24/2024 10:26 AM SPONGE FISHERMAN) Folic Acid 9.4 4.6 - 34.8 ng/mL 07/24/2024 5:05 PM SPONGE FISHERMAN LABORATORY Blood STRUCTURE OF RIGHT UPPER LIMB / Unknown Venipuncture / Unknown 07/24/2024 10:26 AM SPONGE FISHERMAN 07/24/2024 10:27 AM SPONGE FISHERMAN [facility] [place]-[facility] LAB - BLOOD ORDERAB LES Final Result Performing Organization Address City/[facility]/ZIP Co de Phone Number LABORATORY [facility] [address] [facility], [address] * TSH with free T4 reflex (07/24/2024 10:26 AM SPONGE FISHERMAN) TSH 3.35 0.30 - 4.20 uIU/mL 07/24/2024 11:14 AM SPONGE FISHERMAN LABORATORY Blood STRUCTURE OF RIGHT UPPER LIMB / Unknown Venipuncture / Unknown 07/24/2024 10:26 AM SPONGE FISHERMAN 07/24/2024 10:27 AM SPONGE FISHERMAN [facility] LAB - BLOOD ORDERAB LES Final Result [facility] [address] Lab (1st floor, no room number) [place] [id number], [facility] documented in this encounter Visit Diagnoses Diagnosis Memory loss- Primary documented in this encounter Care Teams Rake Operator Relationship Specialty Start Date End Date Tammy Freitas NP [facility] [address] [place] [id number] PCP - General Nurse Practitioner - Adult Health 02/19/18 documented as of this encounter
--- OUTSIDE RECORDS SUMMARY | 2024-09-07 17:13 | XMS_ITS | Encounter Summary ---
Author Organization [place] Address [address] [place] [address]. [place] [address] Care Team Providers Care Bundle Tier And Labeler Name Role Phone Tammy Freitas VOIP NETWORK TECHNICIAN Primary Care Prov ider Encounter Details [...] on file Legal Sex Female 3:45 AM UPFITTER Gender Identity Not on file Sexual Orientation Not on file documented as of this encounter Plan of Treatment Not on file documented as of this encounter Visit Diagnoses Not on filedocumented in this encounter Care Teams Bundle Tier And Labeler Relationship Specialty Start Date End Date Tammy Freitas, [facility] [address] [place] [id number] PCP - General Nurse Practitioner - Adult Health 02/19/18 documented as of this encounter
--- OUTSIDE RECORDS SUMMARY | 2024-09-07 17:13 | XMS_ITS | Encounter Summary ---
Author Organization [facility] Address [address] [place] [address]. [place] [address] Care Team Providers Care Registered Dental Assistant Name Role Phone Tammy Freitas ECONOMICS TEACHER Primary Care Prov ider Encounter Details Date [...] file Legal Sex Female 3:45 AM RN ACUTE DIALYSIS Gender Identity Not on file Sexual Orientation Not on file documented as of this encounter Plan of Treatment Not on file documented as of this encounter Visit Diagnoses Not on filedocumented in this encounter Care Teams Registered Dental Assistant Relationship Specialty Start Date End Date Tammy Freitas, [facility] [address] [place] [id number] PCP - General Nurse Practitioner - Adult Health 02/19/18 documented as of this encounter
[2024-09-07 17:24] LABS: Appearance Urine Clear (Clear); Bilirubin Urine Negative (Negative); Blood Urine Negative (Negative); Color Urine Yellow (Yellow); Glucose Urine Negative (Negative); Ketones Urine Negative (Negative); Leukocyte Esterase Urine Negative (Negative); Nitrite Urine Negative (Negative); Protein Urine Negative (Negative); Specific Gravity Urine 1.025 (1.000-1.030); Urobilinogen Urine 0.2 (0.2-1.0)
[2024-09-07 17:31] LABS: RBC Urine 0-2 (0-2); WBC Urine 0-2 (0-5)
[2024-09-07 17:33] LABS: Basophils Absolute Auto 0.02 K/uL (0.00-0.30); Basophils Percent Auto 0.3 % (0.0-3.0); Hematocrit 36.7 % (33.0-51.0); Hemoglobin* 12.1 gm/dL (12.0-16.0); Immature Granulocytes Abs Auto 0.01 K/uL (0.00-0.30); Immature Granulocytes Pct Auto 0.1 %; Lymphocytes Absolute Auto 2.81 K/uL (0.90-2.90); Lymphocytes Percent Auto 37.8 % (20-44); Mean Corpuscular HGB Conc 33 gm/dL (32-36); Mean Corpuscular Hemoglobin 29 pg (26-34); Mean Corpuscular Volume 89 fL (80-100); Monocytes Percent Auto 8.1 % (0.0-11.0); Neutrophils Percent Auto 49.7 % (42.0-72.0); Platelet Count* 208 K/uL (140-440); Red Blood Count 4.14 m/uL (4.00-5.20); White Blood Count* 7.44 K/uL (4.50-11.00)
[2024-09-07 17:37] LABS: Slide Review Reflex No
[2024-09-07 17:45] LABS: Albumin* 4.7 g/dL (3.3-5.0); Chloride* 100 mmol/L (96-114); Sodium* 135 mmol/L (135-149)
[2024-09-07 17:46] LABS: Potassium* 3.7 mmol/L (3.6-5.1)
[2024-09-07 17:47] LABS: Creatinine* 0.7 mg/dL (0.5-1.5); Est. Creatinine Clearance* 86.01; Estimated Glomerular Filt Rate 103 ml/min
[2024-09-07 17:48] LABS: Alkaline Phosphatase* 64 U/L (40-150); Anion Gap 8 mEq/L (7-15); Aspartate Amino Transferase* 25 U/L (12-35); Bilirubin Total* 0.7 mg/dL (0.1-1.5); Blood Urea Nitrogen* 21 mg/dL (7-30); Carbon Dioxide* 27 mmol/L (20-32); Lipase* 293 U/L (23-300); Total Protein* 7.3 g/dL (6.0-8.3)
[2024-09-07] MEDS: ONDANSETRON 2 MG/ML inj 4 MG IVP (17:48)
[2024-09-07 17:49] LABS: Alanine Aminotransferase* 21 U/L (4-35); Calcium* 9.3 mg/dL (8.4-10.6); Glucose* 94 mg/dL (60-115); Magnesium* 1.8 mg/dL (1.5-2.6)
[2024-09-07] MEDS: ACETAMINOPHEN INJ 1,000 MG/100 ML VIAL 400 MG IVPB (17:50)
[2024-09-07 17:52] LABS: C Reactive Protein* < 0.5 mg/dL (0.5-1.0)
[2024-09-07 18:18] VITALS: BP 122/63; PULSE 81; RESP 18; TEMP 36.4; O2SAT 94
[2024-09-07 18:27] LABS: Vitamin D 25 Hydroxy* 32 ng/mL (30-80)
== END 2024-09-07 19:14 | disposition home or self-care (01) ==
PROVIDERS: Emergency Provider Family Medicine
DX: K29.70 Gastritis, unspecified, without bleeding (principal)
CPT/HCPCS: 36415; 74177; 80053; 81001; 82306; 83690; 83735; 85025; 86140; 96365; 96375; 99284; J0131; J2405; Q9967

== ENCOUNTER 2024-09-15 06:51 | Outpatient (CLI) | payer BC, SELFPAY ==
--- NOTE | 2024-09-15 08:46 | W.ANESCHARGE ---
Anesthesia Charges Start Date/Time Anesthesia Start Date: 09/15/24 Anesthesia Start Time: 08:05 Stop Date/Time Anesthesia Stop Date: 09/15/24 Anesthesia Stop Time: 08:44 Coding CPT Codes CPT Codes: ANES UPR LWR GI NDSC PX - 35114 ([id number]) P2 - PATIENT W/MILD SYST DISEASE, QK - BANKING AND FINANCE INSTRUCTOR 2-4 CNCRNT ANES PROC, QX - STUDENT LIFE VICE PRESIDENT SVC W/ MD MED DIRECTION
--- NOTE | 2024-09-15 08:54 | W.ANESCHARGE ---
Anesthesia Charges Start Date/Time Anesthesia Start Date: 09/15/24 Anesthesia Start Time: 08:05 Stop Date/Time Anesthesia Stop Date: 09/15/24 Anesthesia Stop Time: 08:44 Coding CPT Codes CPT Codes: ANES UPR LWR GI NDSC PX - 35513 ([id number]) QK - CHROME CLEANER 2-4 CNCRNT ANES PROC, QX - ADULT SERVICES LIBRARIAN SVC W/ MD MED DIRECTION, P2 - PATIENT W/MILD SYST DISEASE
== END 2024-09-15 06:52 | disposition home or self-care (01) ==
LOC: OP CLINIC 06:52
PROVIDERS: Visit Provider Surgery
DX: Z12.11 Encounter for screening for malignant neoplasm of colon (principal); K57.30 Diverticulosis of large intestine without perforation or abscess without bleeding; Z86.0100 Personal history of colon polyps, unspecified; R10.13 Epigastric pain; K92.2 Gastrointestinal hemorrhage, unspecified; Z98.84 Bariatric surgery status
CPT/HCPCS: 00813; 43239; 45378; 88305; J2704; J3010